=== PATIENT | female | born 1955 | race Hispanic/Latino ===

== ENCOUNTER 2017-08-18 06:05 | Day surgery (SDC) | payer OTHER ==
[~2017-08-18] VITALS: Ht 157.5 cm; Wt 70.0 kg
[2017-08-18 06:05] VITALS: BP 122/61
[~2017-08-18 06:05] MED LIST: PANT40TA PO; SPIR25TA PO
[2017-08-18] MEDS ORDERED: SODIUM CHLORIDE 0.9% 1000ML 1,000 ML IV ONE (06:25)
[2017-09-21] MEDS ORDERED: PANT40TA25 PO (11:31)
[2017-09-21] MEDS ORDERED: [UNRECOGNIZED DRUG - OTHER] PO (11:31)
[2017-09-21] MEDS ORDERED: ERGO500014 PO (11:31)
[2017-09-21] MEDS ORDERED: FERR325T22 PO (11:31)
[2017-09-21] MEDS ORDERED: SUCR1ORA3 PO (11:31)
[2017-09-21] MEDS ORDERED: MAGN400T40 PO (11:31)
== END 2017-08-18 08:10 | disposition home or self-care (01) ==
LOC: ENDO 06:05 → DAH 06:05 → ENDO 08:10
PROVIDERS: ATTEND Internal Medicine
DX: K28.9 Gastrojejunal ulcer, unspecified as acute or chronic, without hemorrhage or perforation (principal); K25.9 Gastric ulcer, unspecified as acute or chronic, without hemorrhage or perforation; I85.00 Esophageal varices without bleeding; K74.60 Unspecified cirrhosis of liver; Z98.890 Other specified postprocedural states; Z79.899 Other long term (current) drug therapy
CPT/HCPCS: 43239; A4606; J7030

== ENCOUNTER → 2017-09-06 | Outpatient (CLI) | payer OTHER ==
[~2017-09-06] MED LIST changes: +ERGO500014 PO; +FERR325T22 PO; +MAGN400T40 PO; +PANT40TA25 PO; +SUCR1ORA3 PO; +[UNRECOGNIZED DRUG - OTHER] PO
[2017-09-06 10:20] LABS: EOSINOPHILS % (AUTO) 1.4 % (0.0-8.0); HEMATOCRIT 33.5 % (36-48); LYMPHOCYTES % (AUTO) 21.4 % (21.0-51.0); MEAN CORPUSCULAR HEMOGLOBIN 30.6 pg (27.0-33.0); MEAN CORPUSCULAR HGB CONC 34.5 g/dL (32.0-36.0); MEAN CORPUSCULAR VOLUME 88.8 fL (79-99); MONOCYTES % (AUTO) 9.7 % (3.0-13.0); NEUTROPHILS % (AUTO) 66.5 % (40.0-77.0); NUCLEATED RED BLOOD CELLS 0.1 % (0.0-0.19); PLATELET COUNT (AUTO) 74 K/uL (130-400); RED BLOOD CELL COUNT(AUTO) 3.77 MIL/uL (4.00-5.50); RED CELL DISTRIBUTION WIDTH 29.2 % (11.0-15.5); WHITE BLOOD COUNT (AUTO) 4.8 K/uL (4.8-10.8)
[2017-09-06 10:30] LABS: INR 1.44 (0.85-1.15)
[2017-09-06 10:49] LABS: ALBUMIN 2.9 g/dL (3.5-5.0); BILIRUBIN,TOTAL 1.2 mg/dL (0.2-1.0); CREATININE 0.6 mg/dL (0.5-1.5); POTASSIUM 4.4 mmol/L (3.5-5.1); TOTAL PROTEIN, SERUM 6.7 g/dL (6.0-8.3)
[2017-09-06 12:42] LABS: ALBUMIN,BODY FLUID 0.6 g/dL
[2017-09-06 12:50] LABS: APPEARANCE BODY FLUID CLEAR (CLEAR); BODY FLUID RBC 292 /cu. mm.; BODY FLUID WBC 253 /cu. mm.; COLOR,BODY FLUID YELLOW (LT YELLOW); SPECIMENTYPE,BODY FLUID ASCITES
[2017-09-06 12:55] LABS: TOTAL VOLUME,BODY FLUID 3000 mL
[2017-09-06 13:57] LABS: BF LYMPHOCYTE 29 %; BF MESOTHELIAL 60 %; BF MONOCYTE 7 %
== END | disposition home or self-care (01) ==
LOC: RAH 09:50
PROVIDERS: ATTEND Internal Medicine
DX: K70.31 Alcoholic cirrhosis of liver with ascites (principal)
CPT/HCPCS: 36415; 49083; 80053; 82042; 84157; 85025; 85610; 87071; 87205; 88108; 88305; 89051

== ENCOUNTER 2017-09-23 06:54 | Day surgery (SDC) | payer OTHER ==
[2017-09-21 11:01] LABS: BASOPHILS % (AUTO) 0.8 % (0.0-5.0); HEMATOCRIT 36.4 % (36-48); LYMPHOCYTES % (AUTO) 16.6 % (21.0-51.0); MEAN CORPUSCULAR HEMOGLOBIN 30.3 pg (27.0-33.0); MEAN CORPUSCULAR HGB CONC 33.4 g/dL (32.0-36.0); MEAN CORPUSCULAR VOLUME 90.7 fL (79-99); MONOCYTES % (AUTO) 8.1 % (3.0-13.0); NEUTROPHILS % (AUTO) 73.5 % (40.0-77.0); PLATELET COUNT (AUTO) 94 K/uL (130-400); RED BLOOD CELL COUNT(AUTO) 4.01 MIL/uL (4.00-5.50); RED CELL DISTRIBUTION WIDTH 28.5 % (11.0-15.5); WHITE BLOOD COUNT (AUTO) 6.4 K/uL (4.8-10.8)
[2017-09-21 11:02] VITALS: BP 144/64
[2017-09-21 11:14] LABS: INR 1.34 (0.85-1.15)
[2017-09-21 11:21] LABS: ALBUMIN 2.8 g/dL (3.5-5.0); BILIRUBIN,DIRECT 0.5 mg/dL (0.0-0.3); BILIRUBIN,TOTAL 1.2 mg/dL (0.2-1.0); CREATININE 0.8 mg/dL (0.5-1.5); POTASSIUM 4.3 mmol/L (3.5-5.1)
[2017-09-21 11:46] LABS: APPEARANCE,URINE Clear (CLEAR); BILIRUBIN,URINE Negative (NEGATIVE); COLOR,URINE Yellow (YELLOW); GLUCOSE, URINE (UA) Negative (NEGATIVE); KETONES,URINE Negative (NEGATIVE); LEUKOCYTE ESTERASE ,URINE Moderate (NEGATIVE); NITRATE,URINE Negative (NEGATIVE); OCCULT BLOOD,URINE Negative (NEGATIVE); PROTEIN,URINE Negative (NEGATIVE); UROBILINOGEN,URINE 0.2 mg/dL (0.2-1.0)
[2017-09-21 11:52] LABS: BACTERIA,URINE Rare /HPF (None Seen); SQUAMOUS EPITHELIAL CELL,UR Rare /HPF (0-2); WBC,URINE 0-1 /HPF (0-1)
[2017-09-23] VITALS (14 sets, daily range): BP systolic 119–144; BP diastolic 48–74
[~2017-09-23] VITALS: Ht 160 cm; Wt 70.9 kg
[~2017-09-23 06:54] MED LIST changes: -PANT40TA PO; -SPIR25TA PO
[2017-09-23] MEDS ORDERED: LACTATED RINGERS 1000ML 1,000 ML IV ONE (07:21)
[2017-09-23] MEDS ORDERED: MIDAZOLAM HCL 1 MG/ML 2ML VIAL ONE (08:18)
[2017-09-23] MEDS ORDERED: PROPOFOL 10 MG/ML 20ML VIAL IV ONE (08:18)
[2017-09-23] MEDS ORDERED: FENTANYL CITRATE PF 50 MCG/1 ML 2ML VIAL ONE (08:19)
[2017-09-23] MEDS ORDERED: GLYCOPYRROLATE 0.2 MG/ML 5 ML VIAL ONE (08:20)
[2017-09-23] MEDS ORDERED: NEOSTIGMINE METHYLSULFATE 1MG/ML IV ONE (08:20)
[2017-09-23] MEDS ORDERED: MEPERIDINE-PF 25 MG/ML SYG ONE ×2 (09:20→09:38)
== END 2017-09-23 11:05 | disposition home or self-care (01) ==
LOC: DAH 06:54
PROVIDERS: ATTEND Surgery
DX: K40.90 Unilateral inguinal hernia, without obstruction or gangrene, not specified as recurrent (principal); K70.31 Alcoholic cirrhosis of liver with ascites; F31.89 Other bipolar disorder; D50.8 Other iron deficiency anemias; M19.90 Unspecified osteoarthritis, unspecified site; Z88.8 Allergy status to other drugs, medicaments and biological substances; Z87.891 Personal history of nicotine dependence; Z79.899 Other long term (current) drug therapy
CPT/HCPCS: 36415; 49505; 80048; 80076; 81001; 85025; 85610; A4450; A4452; A4600; A4930 ×2; C1729; J2175 ×2; J2250; J2704; J2710; J3010; J3490; J7030; J7120

== ENCOUNTER 2017-09-30 14:25 | Emergency (ER) | payer OTHER ==
[2017-09-30 14:56] LABS: APPEARANCE,URINE Clear (CLEAR); BILIRUBIN,URINE Negative (NEGATIVE); COLOR,URINE Yellow (YELLOW); GLUCOSE, URINE (UA) Negative (NEGATIVE); KETONES,URINE Negative (NEGATIVE); LEUKOCYTE ESTERASE ,URINE Moderate (NEGATIVE); NITRATE,URINE Negative (NEGATIVE); OCCULT BLOOD,URINE Negative (NEGATIVE); PROTEIN,URINE Negative (NEGATIVE)
[2017-09-30 15:11] LABS: BACTERIA,URINE Few /HPF (None Seen); RBC,URINE 0-1 /HPF (0-1)
[2017-09-30 15:11] LABS: EOSINOPHILS % (AUTO) 1.2 % (0.0-8.0); HEMATOCRIT 26.5 % (36-48); LYMPHOCYTES % (AUTO) 14.8 % (21.0-51.0); MEAN CORPUSCULAR HEMOGLOBIN 31.9 pg (27.0-33.0); MEAN CORPUSCULAR HGB CONC 34.3 g/dL (32.0-36.0); MEAN CORPUSCULAR VOLUME 92.9 fL (79-99); MONOCYTES % (AUTO) 11.3 % (3.0-13.0); NEUTROPHILS % (AUTO) 71.7 % (40.0-77.0); PLATELET COUNT (AUTO) 96 K/uL (130-400); RED BLOOD CELL COUNT(AUTO) 2.85 MIL/uL (4.00-5.50); RED CELL DISTRIBUTION WIDTH 27.3 % (11.0-15.5)
[2017-09-30 15:12] LABS: SQUAMOUS EPITHELIAL CELL,UR Few /HPF (0-2)
[2017-09-30 15:26] LABS: CREATININE 0.5 mg/dL (0.5-1.5); POTASSIUM 3.4 mmol/L (3.5-5.1)
[2017-09-30] MEDS ORDERED: IOPAMIDOL-370 75 ML VIAL IV ONE (15:29)
[2017-09-30 15:30] LABS: ALBUMIN 2.7 g/dL (3.5-5.0); BILIRUBIN,DIRECT 0.6 mg/dL (0.0-0.3); BILIRUBIN,TOTAL 1.8 mg/dL (0.2-1.0); TOTAL PROTEIN, SERUM 6.3 g/dL (6.0-8.3)
[2017-09-30] MEDS ORDERED: ONDANSETRON HCL MDV 20ML 2 MG/ML VIAL ONE (15:31)
[2017-09-30] MEDS ORDERED: FENTANYL CITRATE PF 50 MCG/1 ML 2ML VIAL ONE (15:32)
== END 2017-09-30 18:58 | disposition home or self-care (01) ==
LOC: EDH 14:25
DX: R14.0 Abdominal distension (gaseous) (principal); R18.8 Other ascites; K74.60 Unspecified cirrhosis of liver; Z98.890 Other specified postprocedural states
CPT/HCPCS: 36415; 74177; 80048; 80076; 81001; 83690; 84484; 85025; 86850; 86900; 86901; 93005; 96374; 96375; 99285; J3010; Q9967

== ENCOUNTER → 2018-03-01 | Outpatient (CLI) | payer OTHER ==
[~2018-03-01] MED LIST changes: +ALBUMIN (HUMAN) 25% 200 ML IV ONE; +LIDOCAINE HCL MPF 1% 5ML VIAL ONE; +PROP10TA10 PO; -[UNRECOGNIZED DRUG - OTHER] PO
[2018-03-01 12:32] LABS: APPEARANCE BODY FLUID CLEAR (CLEAR); BODY FLUID WBC 211 /cu. mm.; COLOR,BODY FLUID LT YELLOW (LT YELLOW); SPECIMENTYPE,BODY FLUID ASCITES; TOTAL VOLUME,BODY FLUID 5800 mL
[2018-03-01 12:33] LABS: BODY FLUID RBC 275 /cu. mm.
[2018-03-01 12:37] LABS: BF LYMPHOCYTE 41 %; BF MESOTHELIAL 33 %; BF MONOCYTE 4 %
== END | disposition home or self-care (01) ==
LOC: RAH 07:42
PROVIDERS: ATTEND Internal Medicine Gastroenterology
DX: K70.31 Alcoholic cirrhosis of liver with ascites (principal); F10.10 Alcohol abuse, uncomplicated; Z88.8 Allergy status to other drugs, medicaments and biological substances; Z79.01 Long term (current) use of anticoagulants; Z79.899 Other long term (current) drug therapy; Z87.891 Personal history of nicotine dependence
CPT/HCPCS: 49083; 87071; 87205; 88108; 88305; 89051; J3490; P9046

== ENCOUNTER 2018-03-21 12:38 | Emergency (ER) | payer MEDICARE ==
[~2018-03-21 12:38] MED LIST changes: -ALBUMIN (HUMAN) 25% 200 ML IV ONE; -LIDOCAINE HCL MPF 1% 5ML VIAL ONE
[2018-03-21] MEDS ORDERED: LIDOCAINE HCL MPF 1% 5ML VIAL ONE (14:40)
[2018-03-21] MEDS ORDERED: ALBUMIN (HUMAN) 25% 200 ML IV ONE (14:40)
== END 2018-03-21 16:05 | disposition home or self-care (01) ==
LOC: EDH 12:38
DX: R18.8 Other ascites (principal); Z87.891 Personal history of nicotine dependence
CPT/HCPCS: 49083; 99285; J3490; P9046

== ENCOUNTER → 2018-03-30 | Outpatient (CLI) | payer MEDICARE ==
[~2018-03-30] MED LIST changes: +ALBUMIN (HUMAN) 25% 200 ML IV ONE; +LIDOCAINE HCL MPF 1% 5ML VIAL ONE
[2018-03-30 08:57] LABS: INR 1.33 (0.85-1.15); PROTHROMBIN TIME 13.9 SEC (9.6-11.6)
[2018-03-30 09:04] LABS: ALBUMIN 3.1 g/dL (3.5-5.0); CREATININE 0.8 mg/dL (0.5-1.5); POTASSIUM 4.6 mmol/L (3.5-5.1); TOTAL PROTEIN, SERUM 6.6 g/dL (6.0-8.3)
[2018-03-30 09:10] LABS: MEAN CORPUSCULAR HEMOGLOBIN 26.8 pg (27.0-33.0); MEAN CORPUSCULAR HGB CONC 33.4 g/dL (32.0-36.0); MEAN CORPUSCULAR VOLUME 80.3 fL (79-99); PLATELET COUNT (AUTO) 92 K/uL (130-400); RED BLOOD CELL COUNT(AUTO) 3.74 MIL/uL (4.00-5.50); RED CELL DISTRIBUTION WIDTH 23.1 % (11.0-15.5); WHITE BLOOD COUNT (AUTO) 4.1 K/uL (4.8-10.8)
[2018-03-30 09:37] LABS: BASOPHILS % (MANUAL) 2 % (0-2); EOSINOPHILS % (MANUAL) 4 % (1-6); LYMPHOCYTES % (MANUAL) 21 % (22-44); MAN.DIFF COMMENT-IMPRESSION MANUAL DIFFERENTIAL; MONOCYTES % (MANUAL) 6 % (2-9); SEGMENTED NEUTROPHILS % 67 % (40-70)
== END | disposition home or self-care (01) ==
LOC: RAH 08:06
PROVIDERS: ATTEND Internal Medicine Gastroenterology
DX: K70.31 Alcoholic cirrhosis of liver with ascites (principal); N18.9 Chronic kidney disease, unspecified; E44.0 Moderate protein-calorie malnutrition; F31.9 Bipolar disorder, unspecified; D69.6 Thrombocytopenia, unspecified; M19.90 Unspecified osteoarthritis, unspecified site; D68.59 Other primary thrombophilia; F10.10 Alcohol abuse, uncomplicated; Z87.891 Personal history of nicotine dependence; Z79.01 Long term (current) use of anticoagulants; Z79.899 Other long term (current) drug therapy; Z86.010 Personal history of colon polyps; Z98.890 Other specified postprocedural states; Z87.11 Personal history of peptic ulcer disease
CPT/HCPCS: 36415; 80053; 85025; 85610; J3490; P9046

== ENCOUNTER → 2018-04-06 | Outpatient (CLI) | payer MEDICARE ==
[~2018-04-06] MED LIST changes: +ALBUMIN (HUMAN) 25% 200 ML IV PRN
[2018-04-06 08:24] LABS: BASOPHILS % (AUTO) 1.1 % (0.0-5.0); EOSINOPHILS % (AUTO) 1.8 % (0.0-8.0); HEMATOCRIT 27.8 % (36-48); LYMPHOCYTES % (AUTO) 14.2 % (21.0-51.0); MEAN CORPUSCULAR HGB CONC 32.4 g/dL (32.0-36.0); MEAN CORPUSCULAR VOLUME 83.4 fL (79-99); MONOCYTES % (AUTO) 8.2 % (3.0-13.0); NEUTROPHILS % (AUTO) 74.7 % (40.0-77.0); PLATELET COUNT (AUTO) 86 K/uL (130-400); RED BLOOD CELL COUNT(AUTO) 3.33 MIL/uL (4.00-5.50); RED CELL DISTRIBUTION WIDTH 27.1 % (11.0-15.5); WHITE BLOOD COUNT (AUTO) 5.9 K/uL (4.8-10.8)
[2018-04-06 08:35] LABS: ALBUMIN 2.9 g/dL (3.5-5.0); BILIRUBIN,TOTAL 1.4 mg/dL (0.2-1.0); CREATININE 0.8 mg/dL (0.5-1.5); POTASSIUM 4.5 mmol/L (3.5-5.1); TOTAL PROTEIN, SERUM 6.4 g/dL (6.0-8.3)
[2018-04-06 08:42] LABS: INR 1.34 (0.85-1.15)
[2018-04-06 11:54] LABS: APPEARANCE BODY FLUID CLEAR (CLEAR); COLOR,BODY FLUID LT YELLOW (LT YELLOW); SPECIMENTYPE,BODY FLUID ASCITES; TOTAL VOLUME,BODY FLUID 4700 mL
[2018-04-06 11:55] LABS: BODY FLUID WBC 270 /cu. mm.
[2018-04-06 11:56] LABS: BODY FLUID RBC 393 /cu. mm.
[2018-04-06 12:03] LABS: BF LYMPHOCYTE 25 %; BF MESOTHELIAL 20 %; BF MONOCYTE 4 %; BF OTHER CELLS 1
== END | disposition home or self-care (01) ==
LOC: RAH 08:01
PROVIDERS: ATTEND Internal Medicine Gastroenterology
DX: R18.8 Other ascites (principal)
CPT/HCPCS: 36415; 49083; 80053; 85025; 85610; 87071; 87205; 88108; 88305; 89051; 96365; A4215; J3490; P9046

== ENCOUNTER 2018-04-12 11:25 | Observation (INO) | payer MEDICARE ==
[~2018-04-12] VITALS: Ht 160 cm; Wt 56.7 kg
[~2018-04-12 11:25] MED LIST changes: -ALBUMIN (HUMAN) 25% 200 ML IV ONE; -ALBUMIN (HUMAN) 25% 200 ML IV PRN; -LIDOCAINE HCL MPF 1% 5ML VIAL ONE
[2018-04-12 12:30] LABS: BASOPHILS % (AUTO) 1.6 % (0.0-5.0); LYMPHOCYTES % (AUTO) 22.5 % (21.0-51.0); MEAN CORPUSCULAR HEMOGLOBIN 28.5 pg (27.0-33.0); MEAN CORPUSCULAR HGB CONC 33.7 g/dL (32.0-36.0); MEAN CORPUSCULAR VOLUME 84.6 fL (79-99); MONOCYTES % (AUTO) 7.1 % (3.0-13.0); NEUTROPHILS % (AUTO) 67.8 % (40.0-77.0); PLATELET COUNT (AUTO) 115 K/uL (130-400); RED BLOOD CELL COUNT(AUTO) 1.88 MIL/uL (4.00-5.50)
[2018-04-12 12:43] LABS: POTASSIUM 3.4 mmol/L (3.5-5.1)
[2018-04-12 12:45] LABS: HEMATOCRIT 15.9 % (36-48)
[2018-04-12] MEDS ORDERED: SODIUM CHLORIDE 0.9% 500ML 500 ML IV ONE (14:51)
[2018-04-12] MEDS ORDERED: SODIUM CHLORIDE 0.9% 100 ML IV ONE (14:56)
[2018-04-12] MEDS ORDERED: OCTREOTIDE ACETATE 200 MCG/ML 5 ML VIAL ONE (14:57)
[2018-04-12] MEDS ORDERED: PANTOPRAZOLE SODIUM 80 MG in NS 100ML IVP SCH ×2 (15:00→19:00)
[2018-04-12] MEDS ORDERED: SODIUM CHLORIDE 0.9% 1000ML 1,000 ML IV SCH (15:00)
[2018-04-12 16:32] LABS: APPEARANCE,URINE Clear (CLEAR); BILIRUBIN,URINE Negative (NEGATIVE); COLOR,URINE Yellow (YELLOW); GLUCOSE, URINE (UA) Negative (NEGATIVE); KETONES,URINE Negative (NEGATIVE); LEUKOCYTE ESTERASE ,URINE Negative (NEGATIVE); NITRATE,URINE Negative (NEGATIVE); OCCULT BLOOD,URINE Negative (NEGATIVE); PROTEIN,URINE Negative (NEGATIVE); UROBILINOGEN,URINE 0.2 mg/dL (0.2-1.0)
[2018-04-12 17:28] VITALS: BP 119/63
[2018-04-12] MEDS ORDERED: OCTREOTIDE ACETATE 1,000 MCG in SODIUM CHLORIDE 0.9% 95 ML IV SCH (18:45)
[2018-04-12 20:00] VITALS: BP 105/66
[2018-04-12 23:00] VITALS: BP 106/52
[2018-04-13] VITALS (20 sets, daily range): BP systolic 102–135; BP diastolic 51–73
[2018-04-13] MEDS: SODIUM CHLORIDE 0.9% 1000ML 1,000 ML IV SCH ×2 (00:52→08:45)
[2018-04-13 01:50] LABS: HEMATOCRIT 21.4 % (36-48)
[2018-04-13 06:18] LABS: BASOPHILS % (AUTO) 0.9 % (0.0-5.0); EOSINOPHILS % (AUTO) 2.5 % (0.0-8.0); HEMATOCRIT 21.8 % (36-48); LYMPHOCYTES % (AUTO) 24.1 % (21.0-51.0); MEAN CORPUSCULAR HEMOGLOBIN 29.2 pg (27.0-33.0); MEAN CORPUSCULAR HGB CONC 34.4 g/dL (32.0-36.0); MEAN CORPUSCULAR VOLUME 84.9 fL (79-99); MONOCYTES % (AUTO) 9.9 % (3.0-13.0); NEUTROPHILS % (AUTO) 62.6 % (40.0-77.0); PLATELET COUNT (AUTO) 68 K/uL (130-400); RED BLOOD CELL COUNT(AUTO) 2.57 MIL/uL (4.00-5.50); RED CELL DISTRIBUTION WIDTH 21.3 % (11.0-15.5); WHITE BLOOD COUNT (AUTO) 4.4 K/uL (4.8-10.8)
[2018-04-13 06:36] LABS: ALBUMIN 2.3 g/dL (3.5-5.0); BILIRUBIN,TOTAL 1.4 mg/dL (0.2-1.0); CREATININE 0.8 mg/dL (0.5-1.5); INR 1.55 (0.85-1.15); MAGNESIUM 2.3 mg/dL (1.80-2.40); PARTIAL THROMBOPLASTIN TIME 36.6 SEC (26.3-35.5); PHOSPHORUS 2.8 mg/dL (2.5-4.9); PROTHROMBIN TIME 16.1 SEC (9.6-11.6); TOTAL PROTEIN, SERUM 4.9 g/dL (6.0-8.3)
[2018-04-13 06:38] LABS: POTASSIUM 2.9 mmol/L (3.5-5.1)
[2018-04-13] MEDS ORDERED: POTASSIUM CHLORIDE 20MEQ/100ML 100 ML IV ONE (06:49)
[2018-04-13] MEDS ORDERED: POTASSIUM CHLORIDE 20MEQ/100ML 100 ML IV PRN (07:00)
[2018-04-13] MEDS ORDERED: POTASSIUM CHLORIDE 20 MEQ ERTAB PO PRN (07:00)
[2018-04-13] MEDS ORDERED: LIDOCAINE HCL-MPF 1% 2ML VIAL IVP PRN (07:00)
[2018-04-13] MEDS ORDERED: POTASSIUM CHLORIDE 10% ELIXIR 20 MEQ/15 ML UDCUP PO PRN (07:00)
[2018-04-13 07:07] LABS: B-TYPE NATRIURETIC PEPTIDE 151 pg/mL (0-100)
[2018-04-13] MEDS: POTASSIUM CHLORIDE 10% ELIXIR 20 MEQ/15 ML UDCUP PO SCH ×2 (08:46→18:50)
[2018-04-13 12:04] LABS: HEMATOCRIT 25.1 % (36-48)
[2018-04-13 18:08] LABS: HEMATOCRIT 26.9 % (36-48)
[2018-04-14 03:57] VITALS: BP 99/54
[2018-04-14 06:11] LABS: BASOPHILS % (AUTO) 0.8 % (0.0-5.0); EOSINOPHILS % (AUTO) 3.4 % (0.0-8.0); HEMATOCRIT 23.6 % (36-48); LYMPHOCYTES % (AUTO) 30.4 % (21.0-51.0); MEAN CORPUSCULAR HEMOGLOBIN 28.9 pg (27.0-33.0); MEAN CORPUSCULAR HGB CONC 33.4 g/dL (32.0-36.0); MEAN CORPUSCULAR VOLUME 86.3 fL (79-99); MONOCYTES % (AUTO) 12.7 % (3.0-13.0); NEUTROPHILS % (AUTO) 52.7 % (40.0-77.0); PLATELET COUNT (AUTO) 71 K/uL (130-400); RED BLOOD CELL COUNT(AUTO) 2.74 MIL/uL (4.00-5.50); RED CELL DISTRIBUTION WIDTH 21.4 % (11.0-15.5); WHITE BLOOD COUNT (AUTO) 3.6 K/uL (4.8-10.8)
[2018-04-14 06:30] LABS: ALBUMIN 2.2 g/dL (3.5-5.0); BILIRUBIN,TOTAL 1.3 mg/dL (0.2-1.0); CREATININE 0.7 mg/dL (0.5-1.5); MAGNESIUM 2.3 mg/dL (1.80-2.40); PHOSPHORUS 2.2 mg/dL (2.5-4.9); POTASSIUM 3.9 mmol/L (3.5-5.1); TOTAL PROTEIN, SERUM 4.8 g/dL (6.0-8.3)
[2018-04-14 07:00] VITALS: BP 118/58
[2018-04-14] MEDS: POTASSIUM CHLORIDE 10% ELIXIR 20 MEQ/15 ML UDCUP PO SCH (08:42)
[2018-04-14] MEDS ORDERED: PANTOPRAZOLE SODIUM 40 MG TABLET.DR PO SCH (10:30)
[2018-04-14 11:00] VITALS: BP 123/49
[2018-04-14 12:23] LABS: HEMATOCRIT 24.2 % (36-48)
== END 2018-04-14 15:28 | disposition home or self-care (01) ==
LOC: EDH 11:25 → INTOOBSV 14:35 → EDHIP 14:35 → 2AH 17:07
PROVIDERS: ADMIT Internal Medicine; ATTEND Internal Medicine
DX: D62 Acute posthemorrhagic anemia (principal); K29.70 Gastritis, unspecified, without bleeding; K26.9 Duodenal ulcer, unspecified as acute or chronic, without hemorrhage or perforation; I85.00 Esophageal varices without bleeding; K74.60 Unspecified cirrhosis of liver; R18.8 Other ascites; E87.6 Hypokalemia; E44.0 Moderate protein-calorie malnutrition; Z87.891 Personal history of nicotine dependence
CPT/HCPCS: 36415 ×3; 36430; 43235; 71045; 80048; 80053 ×2; 80061; 81003; 82140 ×2; 82270; 83735 ×2; 83880; 84100 ×2; 85014 ×5; 85018 ×5; 85025 ×3; 85610; 85730; 86850; 86900; 86901; 86922 ×2; 93005; 96361; 96365; 96366; 96368; 99291; C9113 ×4; G0378 ×49; J2354 ×5; J2370; J2704; J3480; J3490; J7030 ×2; J7040; P9016 ×2; P9046

== ENCOUNTER → 2018-04-20 | Outpatient (CLI) | payer MEDICARE ==
[~2018-04-20] MED LIST changes: +ALBUMIN (HUMAN) 25% 200 ML IV ONE
[2018-04-20 08:08] LABS: BASOPHILS % (AUTO) 1.7 % (0.0-5.0); EOSINOPHILS % (AUTO) 2.2 % (0.0-8.0); LYMPHOCYTES % (AUTO) 21.3 % (21.0-51.0); MEAN CORPUSCULAR HEMOGLOBIN 28.4 pg (27.0-33.0); MEAN CORPUSCULAR HGB CONC 32.6 g/dL (32.0-36.0); MEAN CORPUSCULAR VOLUME 87.2 fL (79-99); MONOCYTES % (AUTO) 11.9 % (3.0-13.0); NEUTROPHILS % (AUTO) 62.9 % (40.0-77.0); PLATELET COUNT (AUTO) 115 K/uL (130-400); RED BLOOD CELL COUNT(AUTO) 2.64 MIL/uL (4.00-5.50); RED CELL DISTRIBUTION WIDTH 20.8 % (11.0-15.5)
[2018-04-20 08:20] LABS: ALBUMIN 2.5 g/dL (3.5-5.0); BILIRUBIN,TOTAL 0.9 mg/dL (0.2-1.0); POTASSIUM 4.7 mmol/L (3.5-5.1); TOTAL PROTEIN, SERUM 5.4 g/dL (6.0-8.3)
[2018-04-20 08:23] LABS: INR 1.37 (0.85-1.15); PROTHROMBIN TIME 14.3 SEC (9.6-11.6)
[2018-04-20 12:50] LABS: APPEARANCE BODY FLUID CLEAR (CLEAR); COLOR,BODY FLUID YELLOW (LT YELLOW); SPECIMENTYPE,BODY FLUID ASCITES; TOTAL VOLUME,BODY FLUID 4900 mL
[2018-04-20 12:51] LABS: BODY FLUID RBC 119 /cu. mm.; BODY FLUID WBC 150 /cu. mm.
[2018-04-20 12:55] LABS: BF LYMPHOCYTE 32 %; BF MESOTHELIAL 53 %; BF MONOCYTE 11 %
== END | disposition home or self-care (01) ==
LOC: RAH 07:49
PROVIDERS: ATTEND Internal Medicine Gastroenterology
DX: K70.31 Alcoholic cirrhosis of liver with ascites (principal)
CPT/HCPCS: 36415; 49083; 80053; 85025; 85610; 87071; 87205; 88108; 88305; 89051; 96365; A4215; P9046

== ENCOUNTER 2018-04-21 22:08 | Inpatient (IN) | payer MEDICARE ==
[~2018-04-21] VITALS: Ht 160 cm; Wt 64.2 kg
[~2018-04-21 22:08] MED LIST changes: -ALBUMIN (HUMAN) 25% 200 ML IV ONE
[2018-04-21] MEDS ORDERED: SODIUM CHLORIDE 0.9% 1000ML 1,000 ML IV ONE (22:49)
[2018-04-21] MEDS ORDERED: ONDANSETRON HCL 4 MG/2 ML VIAL ONE (22:49)
[2018-04-21 22:54] LABS: BASOPHILS % (AUTO) 0.7 % (0.0-5.0); EOSINOPHILS % (AUTO) 0.2 % (0.0-8.0); LYMPHOCYTES % (AUTO) 9.9 % (21.0-51.0); MEAN CORPUSCULAR HEMOGLOBIN 27.4 pg (27.0-33.0); MEAN CORPUSCULAR HGB CONC 30.8 g/dL (32.0-36.0); MEAN CORPUSCULAR VOLUME 88.8 fL (79-99); MONOCYTES % (AUTO) 5.1 % (3.0-13.0); NEUTROPHILS % (AUTO) 84.1 % (40.0-77.0); NUCLEATED RED BLOOD CELLS 0.1 % (0.0-0.19); PLATELET COUNT (AUTO) 156 K/uL (130-400); RED BLOOD CELL COUNT(AUTO) 2.16 MIL/uL (4.00-5.50); RED CELL DISTRIBUTION WIDTH 20.5 % (11.0-15.5); WHITE BLOOD COUNT (AUTO) 15.8 K/uL (4.8-10.8)
[2018-04-21 22:57] LABS: HEMATOCRIT 19.2 % (36-48)
[2018-04-21] MEDS ORDERED: SODIUM CHLORIDE 0.9% 100 ML IV ONE ×2 (23:03→23:43)
[2018-04-21 23:16] LABS: CREATININE 1.1 mg/dL (0.5-1.5); POTASSIUM 4.2 mmol/L (3.5-5.1)
[2018-04-21 23:27] LABS: ALBUMIN 2.7 g/dL (3.5-5.0); BILIRUBIN,TOTAL 1.5 mg/dL (0.2-1.0); TOTAL PROTEIN, SERUM 5.4 g/dL (6.0-8.3)
[2018-04-21] MEDS ORDERED: OCTREOTIDE ACETATE 100 MCG/ML AMP ONE (23:43)
[2018-04-21] MEDS ORDERED: OCTREOTIDE ACETATE 200 MCG/ML 5 ML VIAL ONE (23:44)
[2018-04-22] VITALS (18 sets, daily range): BP systolic 94–124; BP diastolic 54–68
[2018-04-22 00:17] LABS: INR 1.56 (0.85-1.15); PROTHROMBIN TIME 16.2 SEC (9.6-11.6)
[2018-04-22] MEDS: SODIUM CHLORIDE 0.9% 1000ML 1,000 ML IV SCH ×3 (03:05→19:05)
[2018-04-22] MEDS ORDERED: ACETAMINOPHEN 325 MG TAB PO PRN (03:15)
[2018-04-22] MEDS ORDERED: ONDANSETRON HCL 4 MG/2 ML VIAL IV PRN (03:15)
[2018-04-22] MEDS ORDERED: SODIUM CHLORIDE 0.9% 250 ML IV ONE (03:19)
[2018-04-22 04:36] LABS: HEMATOCRIT 23.1 % (36-48)
[2018-04-22] MEDS: OCTREOTIDE ACETATE 1,000 MCG in SODIUM CHLORIDE 0.9% 95 ML IV SCH ×2 (06:00→10:58)
[2018-04-22] MEDS: PANTOPRAZOLE SODIUM 80 MG in SODIUM CHLORIDE 0.9% 100 ML IV SCH ×2 (06:00→18:19)
[2018-04-22 08:40] LABS: APPEARANCE,URINE Clear (CLEAR); BILIRUBIN,URINE Negative (NEGATIVE); COLOR,URINE Yellow (YELLOW); GLUCOSE, URINE (UA) Negative (NEGATIVE); KETONES,URINE Negative (NEGATIVE); LEUKOCYTE ESTERASE ,URINE Trace (NEGATIVE); NITRATE,URINE Negative (NEGATIVE); OCCULT BLOOD,URINE Negative (NEGATIVE); PROTEIN,URINE Negative (NEGATIVE); UROBILINOGEN,URINE 0.2 mg/dL (0.2-1.0)
[2018-04-22 09:14] LABS: BACTERIA,URINE Few /HPF (None Seen); RBC,URINE 0-1 /HPF (0-1)
[2018-04-22 11:41] LABS: HEMATOCRIT 23.5 % (36-48)
[2018-04-22 14:05] LABS: INR 1.39 (0.85-1.15); PARTIAL THROMBOPLASTIN TIME 31.7 SEC (26.3-35.5); PROTHROMBIN TIME 14.5 SEC (9.6-11.6)
[2018-04-22 14:12] LABS: HEMATOCRIT 21.9 % (36-48)
[2018-04-22 22:17] LABS: HEMATOCRIT 20.8 % (36-48)
[2018-04-23] VITALS (21 sets, daily range): BP systolic 95–148; BP diastolic 48–81
[2018-04-23] MEDS: PANTOPRAZOLE SODIUM 80 MG in SODIUM CHLORIDE 0.9% 100 ML IV SCH ×2 (02:28→15:06)
[2018-04-23] MEDS: SODIUM CHLORIDE 0.9% 1000ML 1,000 ML IV SCH ×2 (02:52→21:00)
[2018-04-23 06:27] LABS: BASOPHILS % (AUTO) 0.9 % (0.0-5.0); EOSINOPHILS % (AUTO) 1.7 % (0.0-8.0); HEMATOCRIT 29.4 % (36-48); LYMPHOCYTES % (AUTO) 15.5 % (21.0-51.0); MEAN CORPUSCULAR HEMOGLOBIN 29.8 pg (27.0-33.0); MEAN CORPUSCULAR HGB CONC 33.6 g/dL (32.0-36.0); MEAN CORPUSCULAR VOLUME 88.7 fL (79-99); MONOCYTES % (AUTO) 7.8 % (3.0-13.0); NEUTROPHILS % (AUTO) 74.1 % (40.0-77.0); RED BLOOD CELL COUNT(AUTO) 3.31 MIL/uL (4.00-5.50); RED CELL DISTRIBUTION WIDTH 16.9 % (11.0-15.5); WHITE BLOOD COUNT (AUTO) 5.2 K/uL (4.8-10.8)
[2018-04-23 06:35] LABS: PLATELET COUNT (AUTO) 60 K/uL (130-400)
[2018-04-23 06:50] LABS: INR 1.45 (0.85-1.15); PROTHROMBIN TIME 15.1 SEC (9.6-11.6)
[2018-04-23 06:52] LABS: ALBUMIN 2.5 g/dL (3.5-5.0); BILIRUBIN,TOTAL 3.9 mg/dL (0.2-1.0); POTASSIUM 3.9 mmol/L (3.5-5.1); TOTAL PROTEIN, SERUM 4.8 g/dL (6.0-8.3)
[2018-04-23] MEDS: OCTREOTIDE ACETATE 1,000 MCG in SODIUM CHLORIDE 0.9% 95 ML IV SCH (09:36)
[2018-04-24] VITALS: BP 117/63
[2018-04-24 04:00] VITALS: BP 116/63
[2018-04-24 06:00] LABS: HEMATOCRIT 29.9 % (36-48); MEAN CORPUSCULAR HEMOGLOBIN 30.7 pg (27.0-33.0); MEAN CORPUSCULAR HGB CONC 34.1 g/dL (32.0-36.0); MEAN CORPUSCULAR VOLUME 89.9 fL (79-99); PLATELET COUNT (AUTO) 66 K/uL (130-400); RED BLOOD CELL COUNT(AUTO) 3.33 MIL/uL (4.00-5.50); RED CELL DISTRIBUTION WIDTH 17.3 % (11.0-15.5); WHITE BLOOD COUNT (AUTO) 3.7 K/uL (4.8-10.8)
[2018-04-24 06:09] LABS: INR 1.51 (0.85-1.15); PROTHROMBIN TIME 15.7 SEC (9.6-11.6)
[2018-04-24 06:16] LABS: CREATININE 0.8 mg/dL (0.5-1.5); POTASSIUM 3.7 mmol/L (3.5-5.1)
[2018-04-24 06:50] LABS: BASOPHILS % (MANUAL) 2 % (0-2); EOSINOPHILS % (MANUAL) 2 % (1-6); LYMPHOCYTES % (MANUAL) 13 % (22-44); MAN.DIFF COMMENT-IMPRESSION MANUAL DIFFERENTIAL; MONOCYTES % (MANUAL) 4 % (2-9); PLATELET MORPHOLOGY COMMENT DECREASED; SEGMENTED NEUTROPHILS % 79 % (40-70)
[2018-04-24 07:00] VITALS: BP 123/63
[2018-04-24 11:00] VITALS: BP 104/54
[2018-04-24] MEDS ORDERED: PANTOPRAZOLE SODIUM 40 MG TABLET.DR PO SCH ×2 (11:30→12:00)
[2018-04-24 12:20] LABS: HEMATOCRIT 31.3 % (36-48); MEAN CORPUSCULAR HEMOGLOBIN 30.9 pg (27.0-33.0); MEAN CORPUSCULAR HGB CONC 33.9 g/dL (32.0-36.0); PLATELET COUNT (AUTO) 69 K/uL (130-400); RED BLOOD CELL COUNT(AUTO) 3.44 MIL/uL (4.00-5.50); RED CELL DISTRIBUTION WIDTH 17.2 % (11.0-15.5); WHITE BLOOD COUNT (AUTO) 4.4 K/uL (4.8-10.8)
== END 2018-04-24 19:15 | disposition home or self-care (01) | DRG 378 ==
LOC: EDH 22:08 → EDHIP 04-22 00:20 → 3DH 04-22 01:24
PROVIDERS: ADMIT Internal Medicine; ATTEND Internal Medicine
PROC: 30233N1 Transfusion of Nonautologous Red Blood Cells into Peripheral Vein, Percutaneous Approach (ICD-10-PCS; 2018-04-21)
PROC: 30233L1 Transfusion of Nonautologous Fresh Plasma into Peripheral Vein, Percutaneous Approach (ICD-10-PCS; 2018-04-22)
PROC: 30233K1 Transfusion of Nonautologous Frozen Plasma into Peripheral Vein, Percutaneous Approach (ICD-10-PCS; 2018-04-22)
PROC: 0DJ08ZZ Inspection of Upper Intestinal Tract, Via Natural or Artificial Opening Endoscopic (ICD-10-PCS; 2018-04-22)
PROC: 0DB68ZX Excision of Stomach, Via Natural or Artificial Opening Endoscopic, Diagnostic (ICD-10-PCS; principal; 2018-04-23)
DX: K92.2 Gastrointestinal hemorrhage, unspecified (principal); D62 Acute posthemorrhagic anemia; D68.59 Other primary thrombophilia; K76.6 Portal hypertension; I85.10 Secondary esophageal varices without bleeding; K70.30 Alcoholic cirrhosis of liver without ascites; K31.89 Other diseases of stomach and duodenum; K22.8 Other specified diseases of esophagus; Z82.0 Family history of epilepsy and other diseases of the nervous system; Z82.3 Family history of stroke; Z82.49 Family history of ischemic heart disease and other diseases of the circulatory system; Z82.5 Family history of asthma and other chronic lower respiratory diseases; Z80.0 Family history of malignant neoplasm of digestive organs
CPT/HCPCS: 36415; 36430; 43235; 43239; 71045; 80048; 80053; 81001; 82150; 83690; 84484; 85014; 85018; 85025; 85027; 85610; 85730; 86850; 86900; 86901; 86922; 86927; 87040; 88305; 93005; 99291; C9113; J2354; J2405; J7030; P9016; P9017

== ENCOUNTER → 2018-05-10 | Outpatient (CLI) | payer MEDICARE ==
[~2018-05-10] MED LIST changes: +ALBUMIN (HUMAN) 25% 200 ML IV SCH; +CEFD300C3 PO; +LIDOCAINE HCL 1% 20 ML VIAL ONE
[2018-05-10 08:35] LABS: BASOPHILS % (AUTO) 1.1 % (0.0-5.0); EOSINOPHILS % (AUTO) 1.8 % (0.0-8.0); HEMATOCRIT 33.3 % (36-48); LYMPHOCYTES % (AUTO) 14.2 % (21.0-51.0); MEAN CORPUSCULAR HEMOGLOBIN 31.2 pg (27.0-33.0); MEAN CORPUSCULAR HGB CONC 33.5 g/dL (32.0-36.0); MEAN CORPUSCULAR VOLUME 93.1 fL (79-99); MONOCYTES % (AUTO) 8.5 % (3.0-13.0); NEUTROPHILS % (AUTO) 74.4 % (40.0-77.0); PLATELET COUNT (AUTO) 99 K/uL (130-400); RED BLOOD CELL COUNT(AUTO) 3.58 MIL/uL (4.00-5.50); WHITE BLOOD COUNT (AUTO) 5.5 K/uL (4.8-10.8)
[2018-05-10 08:50] LABS: ALBUMIN 2.7 g/dL (3.5-5.0); BILIRUBIN,TOTAL 1.6 mg/dL (0.2-1.0); CREATININE 1.4 mg/dL (0.5-1.5); POTASSIUM 4.9 mmol/L (3.5-5.1); TOTAL PROTEIN, SERUM 6.1 g/dL (6.0-8.3)
[2018-05-10 08:51] LABS: INR 1.39 (0.85-1.15); PROTHROMBIN TIME 14.5 SEC (9.6-11.6)
[2018-05-10 12:18] LABS: APPEARANCE BODY FLUID CLEAR (CLEAR); COLOR,BODY FLUID LT YELLOW (LT YELLOW); SPECIMENTYPE,BODY FLUID ASCITES; TOTAL VOLUME,BODY FLUID 8000 mL
[2018-05-10 12:19] LABS: BODY FLUID RBC 1680 /cu. mm.; BODY FLUID WBC 71 /cu. mm.
[2018-05-10 12:24] LABS: BF LYMPHOCYTE 45 %; BF MESOTHELIAL 51 %
== END | disposition home or self-care (01) ==
LOC: RAH 08:06
PROVIDERS: ATTEND Internal Medicine Gastroenterology
DX: R18.8 Other ascites (principal)
CPT/HCPCS: 36415; 49083; 80053; 85025; 85610; 87071; 87205; 88108; 88305; 89051; 96365; A4215; P9046

== ENCOUNTER → 2018-05-23 | Outpatient (CLI) | payer MEDICARE ==
[~2018-05-23] MED LIST changes: +ALBUMIN (HUMAN) 25% 200 ML IV ONE; -ALBUMIN (HUMAN) 25% 200 ML IV SCH; -LIDOCAINE HCL 1% 20 ML VIAL ONE
[2018-05-23 10:01] LABS: BASOPHILS % (AUTO) 0.8 % (0.0-5.0); HEMATOCRIT 28.4 % (36-48); LYMPHOCYTES % (AUTO) 13.1 % (21.0-51.0); MEAN CORPUSCULAR HEMOGLOBIN 30.6 pg (27.0-33.0); MEAN CORPUSCULAR HGB CONC 33.2 g/dL (32.0-36.0); MEAN CORPUSCULAR VOLUME 92.3 fL (79-99); MONOCYTES % (AUTO) 11.1 % (3.0-13.0); PLATELET COUNT (AUTO) 74 K/uL (130-400); RED BLOOD CELL COUNT(AUTO) 3.08 MIL/uL (4.00-5.50); RED CELL DISTRIBUTION WIDTH 19.6 % (11.0-15.5); WHITE BLOOD COUNT (AUTO) 5.7 K/uL (4.8-10.8)
[2018-05-23 10:17] LABS: ALBUMIN 2.6 g/dL (3.5-5.0); BILIRUBIN,TOTAL 1.1 mg/dL (0.2-1.0); CREATININE 0.9 mg/dL (0.5-1.5); POTASSIUM 3.4 mmol/L (3.5-5.1); TOTAL PROTEIN, SERUM 5.9 g/dL (6.0-8.3)
[2018-05-23 10:27] LABS: INR 1.42 (0.85-1.15); PROTHROMBIN TIME 14.8 SEC (9.6-11.6)
[2018-05-23 13:20] LABS: APPEARANCE BODY FLUID CLEAR (CLEAR); COLOR,BODY FLUID LT YELLOW (LT YELLOW); SPECIMENTYPE,BODY FLUID ASCITES
[2018-05-23 13:21] LABS: BODY FLUID RBC 215 /cu. mm.; BODY FLUID WBC 208 /cu. mm.; TOTAL VOLUME,BODY FLUID 5100 mL
[2018-05-23 13:29] LABS: BF LYMPHOCYTE 38 %; BF MESOTHELIAL 11 %; BF MONOCYTE 8 %
== END | disposition home or self-care (01) ==
LOC: RAH 09:18
PROVIDERS: ATTEND Internal Medicine Gastroenterology
DX: R18.8 Other ascites (principal)
CPT/HCPCS: 36415; 49083; 80053; 85025; 85610; 87071; 87205; 88108; 88305; 89051; 96365; A4215; P9046

== ENCOUNTER → 2018-05-30 | Outpatient (CLI) | payer MEDICARE ==
[~2018-05-30] MED LIST changes: -ALBUMIN (HUMAN) 25% 200 ML IV ONE; +ALBUMIN (HUMAN) 25% 200 ML IV SCH
[2018-05-30 09:24] LABS: BASOPHILS % (AUTO) 0.8 % (0.0-5.0); EOSINOPHILS % (AUTO) 1.3 % (0.0-8.0); HEMATOCRIT 30.3 % (36-48); LYMPHOCYTES % (AUTO) 16.6 % (21.0-51.0); MEAN CORPUSCULAR HEMOGLOBIN 31.5 pg (27.0-33.0); MEAN CORPUSCULAR HGB CONC 33.7 g/dL (32.0-36.0); MEAN CORPUSCULAR VOLUME 93.4 fL (79-99); MONOCYTES % (AUTO) 12.9 % (3.0-13.0); NEUTROPHILS % (AUTO) 68.4 % (40.0-77.0); NUCLEATED RED BLOOD CELLS 0.1 % (0.0-0.19); PLATELET COUNT (AUTO) 102 K/uL (130-400); RED BLOOD CELL COUNT(AUTO) 3.25 MIL/uL (4.00-5.50); RED CELL DISTRIBUTION WIDTH 19.5 % (11.0-15.5); WHITE BLOOD COUNT (AUTO) 5.1 K/uL (4.8-10.8)
[2018-05-30 09:47] LABS: INR 1.48 (0.85-1.15); PROTHROMBIN TIME 15.4 SEC (9.6-11.6)
[2018-05-30 09:54] LABS: ALBUMIN 2.9 g/dL (3.5-5.0); BILIRUBIN,TOTAL 1.1 mg/dL (0.2-1.0); CREATININE 1.2 mg/dL (0.5-1.5); TOTAL PROTEIN, SERUM 6.1 g/dL (6.0-8.3)
--- NOTE | 2018-05-30 11:49 | NUR ---
PROCEDURE PATIENT C/O CHILLS DURING PROCEDURE. STATES SHE HAD A FEVER 3 WEEKS AGO. TEMPURATURE PRIOR TO PROCEDURE 98.3 AND TEMPERATURE POST PROCEDURE 102.6. DR GERMAN OFFICE NOTIFIED AND PENDING ORDERS.
--- NOTE | 2018-05-30 12:00 | NUR ---
U/S GD PARACENTESIS PROCEDURE PERFORMED BY DR Ebony POLLARD. PUNCTURE SITE LLQ AND PATIENT TOLERATED PROCEDURE WELL. TOTAL REMOVED 3.8 LITERS OF CLOUDY YELLOW FLUID. ALBUMIN 25% 50 GRAMS IV GIVEN DURING PROCEDURE. SPECIMEN SENT TO LAB. END OF PROCEDURE AT 1130. CATHETER REMOVED AND DRESSING APPLIED. NO BLEEDING NOTED. DISCHARGE INSTRUCTIONS GIVEN TO PATIENT AND VERBALIZED UNDERSTANDING. DISCHARGED VIA W/C AT 1200. AAO X3 WITH NO C/O PAIN. PATIENT WITH TEMP 102.6 AND REPORTED TO TIRSO MALDONADO AT DR Mauricio GERMAN'S OFFICE. PATIENT REFUSING TO GO TO ER FOR CHECK UP. INSTRUCTED PATIENT TO TAKE TYLENOL 1000MG BY MOUTH SOON SHE GETS HOME. IF ELEVATED TEMPERATURE PRESENT TOMORROW, SHE SHE NEEDS TO SEE DR GERMAN IN THE OFFICE. PATIENT VERBALIZED UNDERSTANDING
[2018-05-30 16:02] LABS: APPEARANCE BODY FLUID CLEAR (CLEAR); COLOR,BODY FLUID YELLOW (LT YELLOW); SPECIMENTYPE,BODY FLUID ASCITES; TOTAL VOLUME,BODY FLUID 3800 mL
[2018-05-30 16:03] LABS: BODY FLUID RBC 385 /cu. mm.; BODY FLUID WBC 143 /cu. mm.
[2018-05-30 16:31] LABS: BF LYMPHOCYTE 29 %; BF MONOCYTE 3 %; BF OTHER CELLS 9
== END | disposition home or self-care (01) ==
LOC: RAH 09:00
PROVIDERS: ATTEND Internal Medicine Gastroenterology
DX: R18.8 Other ascites (principal)
CPT/HCPCS: 36415; 49083; 80053; 85025; 85610; 87071; 87077; 87186; 87205; 88108; 88305; 89051; 96365; A4215; P9046

== ENCOUNTER → 2018-06-08 | Outpatient (CLI) | payer MEDICARE ==
[~2018-06-08] MED LIST changes: +LIDOCAINE HCL 1% 20 ML VIAL ONE
--- NOTE | 2018-06-08 09:20 | NUR ---
U/S GD PARACENTESIS PROCEDURE PERFORMED BY DR SESAY. PUNCTURE SITE LEFT SIDE ABDOMEN AND PATIENT TOLERATED PROCEDURE WELL. TOTAL REMOVED 5.0 LITERS OF CLOUDY FLUID. ALBUMIN 25% 50 GRAMS IV GIVEN DURING PROCEDURE. SPECIMEN SENT TO LAB. END OF PROCEDURE AT 1000. CATHETER REMOVED AND DRESSING APPLIED. NO BLEEDING NOTED. DISCHARGE INSTRUCTIONS GIVEN TO PATIENT AND VERBALIZED UNDERSTANDING. DISCHARGED AMBULATORY. AAO X3 WITH NO C/O PAIN
[2018-06-08 12:07] LABS: APPEARANCE BODY FLUID CLEAR (CLEAR); BODY FLUID WBC 384 /cu. mm.; COLOR,BODY FLUID YELLOW (LT YELLOW); SPECIMENTYPE,BODY FLUID ASCITES; TOTAL VOLUME,BODY FLUID 5000 mL
[2018-06-08 12:08] LABS: BODY FLUID RBC 754 /cu. mm.
[2018-06-08 12:50] LABS: BF LYMPHOCYTE 22 %; BF MESOTHELIAL 24 %; BF MONOCYTE 18 %
== END ==
LOC: RAH 08:09
PROVIDERS: ATTEND Internal Medicine Gastroenterology
DX: R18.8 Other ascites (principal)
CPT/HCPCS: 49083; 87071; 87205; 88108; 88305; 89051; 96365; A4215; P9046

== ENCOUNTER → 2018-06-15 | Outpatient (CLI) | payer MEDICARE ==
[2018-06-15 08:27] LABS: BASOPHILS % (AUTO) 0.1 % (0.0-5.0); EOSINOPHILS % (AUTO) 0.1 % (0.0-8.0); HEMATOCRIT 29.6 % (36-48); LYMPHOCYTES % (AUTO) 2.8 % (21.0-51.0); MEAN CORPUSCULAR HEMOGLOBIN 30.2 pg (27.0-33.0); MEAN CORPUSCULAR HGB CONC 32.4 g/dL (32.0-36.0); MEAN CORPUSCULAR VOLUME 93.3 fL (79-99); MONOCYTES % (AUTO) 4.3 % (3.0-13.0); NEUTROPHILS % (AUTO) 92.7 % (40.0-77.0); PLATELET COUNT (AUTO) 75 K/uL (130-400); RED BLOOD CELL COUNT(AUTO) 3.17 MIL/uL (4.00-5.50); RED CELL DISTRIBUTION WIDTH 19.1 % (11.0-15.5); WHITE BLOOD COUNT (AUTO) 16.3 K/uL (4.8-10.8)
[2018-06-15 08:41] LABS: BILIRUBIN,TOTAL 2.1 mg/dL (0.2-1.0); CREATININE 1.1 mg/dL (0.5-1.5); TOTAL PROTEIN, SERUM 6.5 g/dL (6.0-8.3)
[2018-06-15 08:44] LABS: INR 1.57 (0.85-1.15); PROTHROMBIN TIME 16.3 SEC (9.6-11.6)
--- NOTE | 2018-06-15 09:15 | NUR ---
U/S GD PARACENTESIS PROCEDURE PERFORMED BY DR CAMPOS. PUNCTURE SITE RIGHT UPPER QUADRANT AND PATIENT TOLERATED PROCEDURE WELL. TOTAL REMOVED 3.5 LITERS OF CLOUDY YELLOW FLUID. END OF PROCEDURE AT 1005. CATHETER REMOVED AND DRESSING APPLIED. NO BLEEDING NOTED. DISCHARGE INSTRUCTIONS GIVEN TO PATIENT AND VERBALIZED UNDERSTANDING. DISCHARGED AMBULATORY. AAO X3 WITH NO C/O PAIN.
[2018-06-15 12:40] LABS: APPEARANCE BODY FLUID SLIGHTLY CLOUDY (CLEAR); COLOR,BODY FLUID YELLOW (LT YELLOW); SPECIMENTYPE,BODY FLUID ASCITES; TOTAL VOLUME,BODY FLUID 3500 mL
[2018-06-15 12:41] LABS: BODY FLUID RBC 425 /cu. mm.; BODY FLUID WBC 1690 /cu. mm.
[2018-06-15 12:47] LABS: BF LYMPHOCYTE 2 %; BF MONOCYTE 3 %
== END | disposition home or self-care (01) ==
LOC: RAH 08:08
PROVIDERS: ATTEND Internal Medicine Gastroenterology
DX: K70.31 Alcoholic cirrhosis of liver with ascites (principal); F10.10 Alcohol abuse, uncomplicated; F15.90 Other stimulant use, unspecified, uncomplicated; Z79.2 Long term (current) use of antibiotics; Z79.899 Other long term (current) drug therapy; Z80.0 Family history of malignant neoplasm of digestive organs; Z82.49 Family history of ischemic heart disease and other diseases of the circulatory system; Z82.0 Family history of epilepsy and other diseases of the nervous system; Z82.5 Family history of asthma and other chronic lower respiratory diseases
CPT/HCPCS: 36415; 49083; 80053; 85025; 85610; 87071; 87205; 88108; 88305; 89051; 96365; A4215; P9046

== ENCOUNTER → 2018-06-24 | Outpatient (CLI) | payer MEDICARE ==
[~2018-06-24] MED LIST changes: +ALBUMIN (HUMAN) 25% 200 ML IV ONE; -ALBUMIN (HUMAN) 25% 200 ML IV SCH; -LIDOCAINE HCL 1% 20 ML VIAL ONE
[2018-06-24 08:39] LABS: BASOPHILS % (AUTO) 0.2 % (0.0-5.0); EOSINOPHILS % (AUTO) 0.1 % (0.0-8.0); HEMATOCRIT 27.7 % (36-48); LYMPHOCYTES % (AUTO) 3.1 % (21.0-51.0); MEAN CORPUSCULAR HGB CONC 33.9 g/dL (32.0-36.0); MEAN CORPUSCULAR VOLUME 91.7 fL (79-99); MONOCYTES % (AUTO) 3.6 % (3.0-13.0); PLATELET COUNT (AUTO) 89 K/uL (130-400); RED BLOOD CELL COUNT(AUTO) 3.02 MIL/uL (4.00-5.50); RED CELL DISTRIBUTION WIDTH 17.4 % (11.0-15.5); WHITE BLOOD COUNT (AUTO) 11.1 K/uL (4.8-10.8)
[2018-06-24 08:51] LABS: ALBUMIN 2.7 g/dL (3.5-5.0); BILIRUBIN,TOTAL 2.7 mg/dL (0.2-1.0); CREATININE 1.5 mg/dL (0.5-1.5); POTASSIUM 3.5 mmol/L (3.5-5.1); TOTAL PROTEIN, SERUM 6.3 g/dL (6.0-8.3)
[2018-06-24 09:05] LABS: PROTHROMBIN TIME 20.7 SEC (9.6-11.6)
--- NOTE | 2018-06-24 09:30 | NUR ---
U/S GD PARACENTESIS PROCEDURE PERFORMED BY DR RAMAN, PUNCTURE SITE LEFT LOWER QUADRANT AND PATIENT TOLERATED PROCEDURE WELL. TOTAL REMOVED 4.0 LITERS OF CLOUDY YELLOW FLUID. END OF PROCEDURE AT 0950. CATHETER REMOVED AND DRESSING APPLIED. NO BLEEDING NOTED. SPECIMEN SENT TO LAB. ALBUMIN 25% 50 GRAMS GIVEN IV PER MD ORDERS. DISCHARGE INSTRUCTIONS GIVEN TO PATIENT AND VERBALIZED UNDERSTANDING. DISCHARGED AMBULATORY, STALBE, AAO X3 WITH NO C/O PAIN @ 1020.
[2018-06-24 12:09] LABS: BF LYMPHOCYTE 3 %; BF MONOCYTE 2 %
[2018-06-24 12:12] LABS: APPEARANCE BODY FLUID CLOUDY (CLEAR); COLOR,BODY FLUID YELLOW (LT YELLOW); SPECIMENTYPE,BODY FLUID ASCITES; TOTAL VOLUME,BODY FLUID 4000 mL
[2018-06-24 12:13] LABS: BODY FLUID RBC 2092 /cu. mm.; BODY FLUID WBC 22940 /cu. mm.
== END ==
LOC: RAH 08:01
PROVIDERS: ATTEND Internal Medicine Gastroenterology
DX: R18.8 Other ascites (principal); Z79.01 Long term (current) use of anticoagulants
CPT/HCPCS: 36415; 49083; 80053; 85025; 85610; 87071; 87077; 87186; 87205; 88108; 88305; 89051; 96365; A4215; P9046

== ENCOUNTER → 2018-07-01 | Outpatient (CLI) | payer MEDICARE ==
[~2018-07-01] MED LIST changes: -ALBUMIN (HUMAN) 25% 200 ML IV ONE; +ALBUMIN (HUMAN) 25% 200 ML IV SCH
--- NOTE | 2018-07-01 10:16 | NUR ---
U/S GD PARACENTESIS PROCEDURE PERFORMED BY DR Alex SESAY. PUNCTURE SITE RLQ AND PATIENT TOLERATED PROCEDURE WELL. TOTAL REMOVED 4.8 LITERS OF CLOUDY YELLOW FLUID. ALBUMIN 25% 50 GRAMS IV GIVEN DURING PROCEDURE. SPECIMEN SENT TO LAB. END OF PROCEDURE AT 0945. CATHETER REMOVED AND DRESSING APPLIED. NO BLEEDING NOTED. DISCHARGE INSTRUCTIONS GIVEN TO PATIENT AND VERBALIZED UNDERSTANDING. DISCHARGED VIA W/C AT 1015. AAO X3 WITH NO C/O PAIN.
[2018-07-01 13:06] LABS: SPECIMENTYPE,BODY FLUID ASCITES
[2018-07-01 13:07] LABS: APPEARANCE BODY FLUID CLOUDY (CLEAR); COLOR,BODY FLUID YELLOW (LT YELLOW); TOTAL VOLUME,BODY FLUID 4800 mL
[2018-07-01 13:25] LABS: BODY FLUID RBC 575 /cu. mm.; BODY FLUID WBC 335 /cu. mm.
[2018-07-01 13:28] LABS: BF LYMPHOCYTE 17 %; BF MONOCYTE 9 %
== END | disposition home or self-care (01) ==
LOC: RAH 08:15
PROVIDERS: ATTEND Internal Medicine Gastroenterology
DX: K70.31 Alcoholic cirrhosis of liver with ascites (principal); Z79.01 Long term (current) use of anticoagulants; Z86.010 Personal history of colon polyps; Z98.890 Other specified postprocedural states; Z79.899 Other long term (current) drug therapy; I85.00 Esophageal varices without bleeding
CPT/HCPCS: 49083; 87071; 87205; 88108; 88305; 89051; 96365; A4215; P9046

== ENCOUNTER → 2018-07-08 | Outpatient (CLI) | payer MEDICARE ==
[~2018-07-08] MED LIST changes: +LIDOCAINE HCL 1% 20 ML VIAL ONE
[2018-07-08 10:09] LABS: MEAN CORPUSCULAR HEMOGLOBIN 31.1 pg (27.0-33.0); MEAN CORPUSCULAR HGB CONC 34.4 g/dL (32.0-36.0); MEAN CORPUSCULAR VOLUME 90.6 fL (79-99); PLATELET COUNT (AUTO) 111 K/uL (130-400); RED CELL DISTRIBUTION WIDTH 18.7 % (11.0-15.5); WHITE BLOOD COUNT (AUTO) 11.9 K/uL (4.8-10.8)
--- NOTE | 2018-07-08 10:30 | NUR ---
U/S GD PARACENTESIS PROCEDURE PERFORMED BY DR Ebony CAMPOS. PUNCTURE SITE LLQ AND PATIENT TOLERATED PROCEDURE WELL. TOTAL REMOVED 2 LITERS OF CLOUDY CELIO FLUID. ALBUMIN 25% 50 GRAMS IV GIVEN DURING PROCEDURE AND SPECIMEN SENT TO LAB. END OF PROCEDURE AT 1000. CATHETER REMOVED AND DRESSING APPLIED. NO BLEEDING NOTED. DISCHARGE INSTRUCTIONS GIVEN TO PATIENT AND VERBALIZED UNDERSTANDING. DISCHARGED VIA W/C AT 1030. AAO X3 WITH NO C/O PAIN.
[2018-07-08 13:10] LABS: APPEARANCE BODY FLUID CLOUDY (CLEAR); SPECIMENTYPE,BODY FLUID ASCITES
[2018-07-08 13:11] LABS: BODY FLUID RBC 3967 /cu. mm.; BODY FLUID WBC 317 /cu. mm.; COLOR,BODY FLUID DARK YELLOW (LT YELLOW); TOTAL VOLUME,BODY FLUID 2000 mL
[2018-07-08 13:23] LABS: BF LYMPHOCYTE 60 %; BF MESOTHELIAL 11 %; BF MONOCYTE 10 %
== END ==
LOC: RAH 07:35
PROVIDERS: ATTEND Internal Medicine Gastroenterology
DX: K70.31 Alcoholic cirrhosis of liver with ascites (principal); Z86.010 Personal history of colon polyps; Z98.890 Other specified postprocedural states; Z79.899 Other long term (current) drug therapy; D64.9 Anemia, unspecified; I85.00 Esophageal varices without bleeding
CPT/HCPCS: 36415; 49083; 85027; 87071; 87205; 88108; 88305; 89051; 96365; A4215; P9046

== ENCOUNTER → 2018-07-15 | Outpatient (CLI) | payer MEDICARE ==
[~2018-07-15] MED LIST changes: -LIDOCAINE HCL 1% 20 ML VIAL ONE
[2018-07-15 08:20] LABS: EOSINOPHILS % (AUTO) 1.5 % (0.0-8.0); MEAN CORPUSCULAR HEMOGLOBIN 31.7 pg (27.0-33.0); MEAN CORPUSCULAR HGB CONC 33.4 g/dL (32.0-36.0); MEAN CORPUSCULAR VOLUME 94.9 fL (79-99); MONOCYTES % (AUTO) 10.5 % (3.0-13.0); PLATELET COUNT (AUTO) 48 K/uL (130-400); RED BLOOD CELL COUNT(AUTO) 2.64 MIL/uL (4.00-5.50); RED CELL DISTRIBUTION WIDTH 21.3 % (11.0-15.5); WHITE BLOOD COUNT (AUTO) 4.3 K/uL (4.8-10.8)
[2018-07-15 08:26] LABS: CREATININE 0.9 mg/dL (0.5-1.5); POTASSIUM 4.2 mmol/L (3.5-5.1)
[2018-07-15 08:27] LABS: INR 1.55 (0.85-1.15); PROTHROMBIN TIME 16.1 SEC (9.6-11.6)
[2018-07-15 08:31] LABS: ALBUMIN 2.6 g/dL (3.5-5.0); BILIRUBIN,TOTAL 1.8 mg/dL (0.2-1.0); TOTAL PROTEIN, SERUM 6.1 g/dL (6.0-8.3)
--- NOTE | 2018-07-15 09:09 | NUR ---
PROCEDURE PATIENT SCHEDULED FOR U/S GD PARACENTESIS. IMAGES TAKEN AND REVIEWED BY DR Alex SESAY. MINIMAL FLUID SEEN WITH HIGH RISK OF BOWEL PERFORATION. PROCEDURE CANCELLED AND OUTCOME EXPLAINED TO PATIENT. PATIENT VERBALIZED UNDERSTANDING AND DISCHARGED VIA AMBULATION.
== END ==
LOC: RAH 07:44
PROVIDERS: ATTEND Internal Medicine Gastroenterology
DX: R18.8 Other ascites (principal); Z79.01 Long term (current) use of anticoagulants
CPT/HCPCS: 36415; 76705; 80053; 85025; 85610; P9046

== ENCOUNTER → 2018-07-21 | Outpatient (CLI) | payer MEDICARE ==
[~2018-07-21] MED LIST changes: +LIDOCAINE HCL 1% 20 ML VIAL ONE
--- NOTE | 2018-07-21 09:10 | NUR ---
U/S GD PARACENTESIS PROCEDURE PERFORMED BY DR SESAY. PUNCTURE SITE LEFT LOWER QUADRANT AND PATIENT TOLERATED PROCEDURE WELL. TOTAL REMOVED 2.2 LITERS OF CLEAR YELLOW FLUID. END OF PROCEDURE AT 0930. CATHETER REMOVED AND DRESSING APPLIED. NO BLEEDING NOTED. ALBUMIN 25 % 50 GRAMS GIVEN IV PER MD ORDERS. DISCHARGE INSTRUCTIONS GIVEN TO PATIENT AND VERBALIZED UNDERSTANDING. DISCHARGED AMBULATORY WITH ASST OF CANE @ 0950, STABLE. AAO X3 WITH NO C/O PAIN.
== END | disposition home or self-care (01) ==
LOC: RAH 07:51
PROVIDERS: ATTEND Internal Medicine Gastroenterology
DX: K70.31 Alcoholic cirrhosis of liver with ascites (principal); D64.9 Anemia, unspecified; Z86.010 Personal history of colon polyps; I85.00 Esophageal varices without bleeding
CPT/HCPCS: 49083; 96365; A4215; P9046

== ENCOUNTER → 2018-07-29 | Outpatient (CLI) | payer MEDICARE ==
[~2018-07-29] MED LIST changes: -ALBUMIN (HUMAN) 25% 200 ML IV SCH; -LIDOCAINE HCL 1% 20 ML VIAL ONE
--- NOTE | 2018-07-29 08:55 | NUR ---
U/S GD PARACENTESIS PROCEDURE PERFORMED BY DR GAMBLE. PUNCTURE SITE LEFT SIDE ABDOMEN AND PATIENT TOLERATED PROCEDURE WELL. TOTAL REMOVED 2.6 LITERS OF CLEAR YELLOW FLUID. SPECIMEN SENT TO LAB. END OF PROCEDURE AT 0925. CATHETER REMOVED AND DRESSING APPLIED. NO BLEEDING NOTED. DISCHARGE INSTRUCTIONS GIVEN TO PATIENT AND VERBALIZED UNDERSTANDING. DISCHARGED AMBULATORY @ 0940, STABLE, AAO X3 WITH NO C/O PAIN.
[2018-07-29 13:48] LABS: APPEARANCE BODY FLUID SLIGHTLY CLOUDY (CLEAR); SPECIMENTYPE,BODY FLUID ASCITES
[2018-07-29 13:49] LABS: COLOR,BODY FLUID YELLOW (LT YELLOW); TOTAL VOLUME,BODY FLUID 2600 mL
[2018-07-29 13:50] LABS: BODY FLUID RBC 150 /cu. mm.; BODY FLUID WBC 107 /cu. mm.
[2018-07-29 13:53] LABS: BF LYMPHOCYTE 76 %; BF MONOCYTE 24 %
== END | disposition home or self-care (01) ==
LOC: RAH 08:09
PROVIDERS: ATTEND Internal Medicine Gastroenterology
DX: R18.8 Other ascites (principal)
CPT/HCPCS: 49083; 87071; 87205; 89051; A4215

== ENCOUNTER → 2018-08-05 | Outpatient (CLI) | payer MEDICARE ==
[~2018-08-05] MED LIST changes: +LIDOCAINE HCL 1% 20 ML VIAL ONE
--- NOTE | 2018-08-05 09:30 | NUR ---
ALBUMIN INFUSION 2.4 LITERS OF CLOUDY YELLOW FLUID REMOVED. PATIENT DID NOT MEET CRITERIA FOR ALBUMIN INFUSION PER PROTOCOL. NO ALBUMIN GIVEN ORDERED BY DR Mauricio GERMAN.
--- NOTE | 2018-08-05 09:45 | NUR ---
U/S GD PARACENTESIS PROCEDURE PERFORMED BY DR Alex SESAY. PUNCTURE SITE LLQ AND PATIENT TOLERATED PROCEDURE WELL. TOTAL REMOVED 2.4 LITERS OF CLOUDY YELLOW FLUID. END OF PROCEDURE AT 0915. CATHETER REMOVED AND DRESSING APPLIED. NO BLEEDING NOTED. DISCHARGE INSTRUCTIONS GIVEN TO PATIENT AND VERBALIZED UNDERSTANDING. DISCHARGED VIA AMBULATION AT 0945. AAO X3 WITH NO C/O PAIN.
== END | disposition home or self-care (01) ==
LOC: RAH 08:03
PROVIDERS: ATTEND Internal Medicine Gastroenterology
DX: R18.8 Other ascites (principal)
CPT/HCPCS: 49083; A4215

== ENCOUNTER 2018-08-26 09:22 | Inpatient (IN) | payer MEDICARE | END 2018-08-26 14:26 | disposition left against medical advice (07) | LOC: EDH 09:22 → EDHIP 11:28 ==

== ENCOUNTER → 2018-08-31 | Outpatient (CLI) | payer MEDICARE ==
[2018-08-31 09:00] LABS: BASOPHILS % (AUTO) 4.9 % (0.0-5.0); EOSINOPHILS % (AUTO) 2.7 % (0.0-8.0); HEMATOCRIT 29.6 % (36-48); LYMPHOCYTES % (AUTO) 11.8 % (21.0-51.0); MEAN CORPUSCULAR HEMOGLOBIN 30.5 pg (27.0-33.0); MEAN CORPUSCULAR HGB CONC 32.5 g/dL (32.0-36.0); MEAN CORPUSCULAR VOLUME 93.8 fL (79-99); MONOCYTES % (AUTO) 9.7 % (3.0-13.0); NEUTROPHILS % (AUTO) 70.9 % (40.0-77.0); NUCLEATED RED BLOOD CELLS 0.1 % (0.0-0.19); PLATELET COUNT (AUTO) 106 K/uL (130-400); RED BLOOD CELL COUNT(AUTO) 3.16 MIL/uL (4.00-5.50); RED CELL DISTRIBUTION WIDTH 16.5 % (11.0-15.5); WHITE BLOOD COUNT (AUTO) 4.2 K/uL (4.8-10.8)
[2018-08-31 09:14] LABS: ALBUMIN 2.6 g/dL (3.5-5.0); BILIRUBIN,TOTAL 0.8 mg/dL (0.2-1.0); CREATININE 0.7 mg/dL (0.5-1.5); POTASSIUM 4.5 mmol/L (3.5-5.1); TOTAL PROTEIN, SERUM 6.7 g/dL (6.0-8.3)
[2018-08-31 09:21] LABS: INR 1.3 (0.85-1.15); PROTHROMBIN TIME 13.6 SEC (9.6-11.6)
--- NOTE | 2018-08-31 09:40 | NUR ---
U/S GD PARACENTESIS PROCEDURE PERFORMED BY DR Juan Antonio GAMBLE. PUNCTURE SITE LLQ AND PATIENT TOLERATED PROCEDURE WELL. TOTAL REMOVED 3.7 LITERS OF CLOUDY YELLOW FLUID. END OF PROCEDURE AT 1005. CATHETER REMOVED AND DRESSING APPLIED. NO BLEEDING NOTED. DISCHARGE INSTRUCTIONS GIVEN TO PATIENT AND VERBALIZED UNDERSTANDING. DISCHARGED VIA AMBULATION AT 1025. AAO X3 WITH NO C/O PAIN.
[2018-08-31 13:16] LABS: APPEARANCE BODY FLUID CLEAR (CLEAR); COLOR,BODY FLUID YELLOW (LT YELLOW); SPECIMENTYPE,BODY FLUID ASCITES; TOTAL VOLUME,BODY FLUID 3700 mL
[2018-08-31 13:17] LABS: BODY FLUID RBC 174 /cu. mm.; BODY FLUID WBC 223 /cu. mm.
[2018-08-31 13:53] LABS: BF LYMPHOCYTE 79 %; BF MESOTHELIAL 14 %; BF MONOCYTE 4 %
== END | disposition home or self-care (01) ==
LOC: RAH 08:22
PROVIDERS: ATTEND Internal Medicine Gastroenterology
DX: K70.31 Alcoholic cirrhosis of liver with ascites (principal); I85.00 Esophageal varices without bleeding; K26.9 Duodenal ulcer, unspecified as acute or chronic, without hemorrhage or perforation; D64.9 Anemia, unspecified; Z86.010 Personal history of colon polyps; K40.90 Unilateral inguinal hernia, without obstruction or gangrene, not specified as recurrent
CPT/HCPCS: 36415; 49083; 80053; 85025; 85610; 87071; 87205; 89051; A4215

== ENCOUNTER → 2018-09-07 | Outpatient (CLI) | payer MEDICARE ==
--- NOTE | 2018-09-07 09:00 | NUR ---
U/S GD PARACENTESIS PROCEDURE PERFORMED BY DR SESAY. PUNCTURE SITE RIGHT SIDE ABDOMEN AND PATIENT TOLERATED PROCEDURE WELL. TOTAL REMOVED 3.4 LITERS OF CLOUDY YELLOW FLUID. END OF PROCEDURE AT 0920. CATHETER REMOVED AND DRESSING APPLIED. NO BLEEDING NOTED. SPECIMEN SENT TO LAB. DISCHARGE INSTRUCTIONS GIVEN TO PATIENT AND VERBALIZED UNDERSTANDING. DISCHARGED AMBULATORY, STABLE, AAO X3 WITH NO C/O PAIN.
[2018-09-07 12:06] LABS: SPECIMENTYPE,BODY FLUID ASCITES
[2018-09-07 12:07] LABS: APPEARANCE BODY FLUID CLEAR (CLEAR); COLOR,BODY FLUID YELLOW (LT YELLOW); TOTAL VOLUME,BODY FLUID 3400 mL
[2018-09-07 12:08] LABS: BODY FLUID RBC 933 /cu. mm.; BODY FLUID WBC 258 /cu. mm.
[2018-09-07 12:20] LABS: BF LYMPHOCYTE 67 %; BF MESOTHELIAL 16 %; BF MONOCYTE 13 %
== END | disposition home or self-care (01) ==
LOC: RAH 08:11
PROVIDERS: ATTEND Internal Medicine Gastroenterology
DX: K70.31 Alcoholic cirrhosis of liver with ascites (principal); Z86.010 Personal history of colon polyps; I85.00 Esophageal varices without bleeding; Z98.890 Other specified postprocedural states; Z79.899 Other long term (current) drug therapy; K29.70 Gastritis, unspecified, without bleeding
CPT/HCPCS: 49083; 87071; 87205; 89051; A4215

== ENCOUNTER → 2018-09-14 | Outpatient (CLI) | payer MEDICARE ==
[~2018-09-14] MED LIST changes: -LIDOCAINE HCL 1% 20 ML VIAL ONE
--- NOTE | 2018-09-14 09:30 | NUR ---
U/S GD PARACENTESIS PROCEDURE PERFORMED BY DR Alex SESAY. PUNCTURE SITE RLQ AND PATIENT TOLERATED PROCEDURE WELL. TOTAL REMOVED 3.6 LITERS OF CLOUDY YELLOW FLUID. END OF PROCEDURE AT 0900. CATHETER REMOVED AND DRESSING APPLIED. NO BLEEDING NOTED. DISCHARGE INSTRUCTIONS GIVEN TO PATIENT AND VERBALIZED UNDERSTANDING. DISCHARGED VIA AMBULATION AT 0930. AAO X3 WITH NO C/O PAIN.
== END | disposition home or self-care (01) ==
LOC: RAH 07:58
PROVIDERS: ATTEND Internal Medicine Gastroenterology
DX: R18.8 Other ascites (principal)
CPT/HCPCS: 49083; A4215

== ENCOUNTER → 2018-09-21 | Outpatient (CLI) | payer MEDICARE ==
--- NOTE | 2018-09-21 09:30 | NUR ---
U/S GD PARACENTESIS PROCEDURE PERFORMED BY DR GAMBLE. PUNCTURE SITE RIGHT LOWER QUADRANT AND PATIENT TOLERATED PROCEDURE WELL. TOTAL REMOVED 5.3 LITERS OF CLOUDY YELLOW ASCITES FLUID. END OF PROCEDURE AT 0950. CATHETER REMOVED AND DRESSING APPLIED. NO BLEEDING NOTED. SPECIMEN SENT TO LAB. PT REFUSED ALBUMIN 25 % 30 GRAMS GIVEN IV PER MD ORDERS AND PROTOCOL. DISCHARGE INSTRUCTIONS GIVEN TO PATIENT AND VERBALIZED UNDERSTANDING. DISCHARGED AMBULATORY, STABLE, AAO X3 WITH NO C/O PAIN
[2018-09-21 13:04] LABS: APPEARANCE BODY FLUID CLEAR (CLEAR); COLOR,BODY FLUID YELLOW (LT YELLOW); SPECIMENTYPE,BODY FLUID ASCITES; TOTAL VOLUME,BODY FLUID 6300 mL
[2018-09-21 13:05] LABS: BODY FLUID RBC 318 /cu. mm.; BODY FLUID WBC 166 /cu. mm.
[2018-09-21 13:33] LABS: BF LYMPHOCYTE 66 %; BF MESOTHELIAL 13 %; BF MONOCYTE 21 %
== END | disposition home or self-care (01) ==
LOC: RAH 08:10
PROVIDERS: ATTEND Internal Medicine Gastroenterology
DX: R18.8 Other ascites (principal); Z79.01 Long term (current) use of anticoagulants
CPT/HCPCS: 49083; 87071; 87205; 89051; A4215

== ENCOUNTER → 2018-09-28 | Outpatient (CLI) | payer MEDICARE ==
[~2018-09-28] MED LIST changes: +ALBUMIN (HUMAN) 25% 100 ML IV ONE; +ALBUMIN (HUMAN) 25% 100 ML IV SCH; +LIDOCAINE HCL 1% 20 ML VIAL ONE
[2018-09-28 08:25] LABS: BASOPHILS % (AUTO) 1.3 % (0.0-5.0); LYMPHOCYTES % (AUTO) 19.3 % (21.0-51.0); MEAN CORPUSCULAR HEMOGLOBIN 30.1 pg (27.0-33.0); MEAN CORPUSCULAR HGB CONC 33.9 g/dL (32.0-36.0); MEAN CORPUSCULAR VOLUME 88.9 fL (79-99); MONOCYTES % (AUTO) 11.2 % (3.0-13.0); NEUTROPHILS % (AUTO) 66.2 % (40.0-77.0); NUCLEATED RED BLOOD CELLS 0.1 % (0.0-0.19); PLATELET COUNT (AUTO) 82 K/uL (130-400); RED BLOOD CELL COUNT(AUTO) 3.27 MIL/uL (4.00-5.50); RED CELL DISTRIBUTION WIDTH 15.9 % (11.0-15.5); WHITE BLOOD COUNT (AUTO) 3.4 K/uL (4.8-10.8)
[2018-09-28 08:33] LABS: CREATININE 0.8 mg/dL (0.5-1.5); POTASSIUM 4.5 mmol/L (3.5-5.1)
[2018-09-28 08:35] LABS: INR 1.34 (0.85-1.15)
[2018-09-28 08:39] LABS: ALBUMIN 2.2 g/dL (3.5-5.0); BILIRUBIN,TOTAL 1.1 mg/dL (0.2-1.0)
--- NOTE | 2018-09-28 09:10 | NUR ---
U/S GD PARACENTESIS PROCEDURE PERFORMED BY DR RAMAN. PUNCTURE SITE RIGHT UPPER QUADRANT AND PATIENT TOLERATED PROCEDURE WELL. TOTAL REMOVED 7.0 LITERS OF CLOUDY YELLOW FLUID. ALBUMIN 25% 25 GRAMS IV GIVEN DURING PROCEDURE. SPECIMEN SENT TO LAB. END OF PROCEDURE AT 0940. CATHETER REMOVED AND DRESSING APPLIED. NO BLEEDING NOTED. DISCHARGE INSTRUCTIONS GIVEN TO PATIENT AND VERBALIZED UNDERSTANDING. PIV DC'D FROM THE RIGHT FOREARM, BANDAID APPLIED, DRESSING DRY AND INTACT. DISCHARGED AMBULATORY. STABLE, AAO X3 WITH NO C/O PAIN.
[2018-09-28 12:20] LABS: APPEARANCE BODY FLUID CLEAR (CLEAR); COLOR,BODY FLUID YELLOW (LT YELLOW); SPECIMENTYPE,BODY FLUID ASCITES; TOTAL VOLUME,BODY FLUID 7000 mL
[2018-09-28 12:21] LABS: BODY FLUID RBC 132 /cu. mm.; BODY FLUID WBC 188 /cu. mm.
[2018-09-28 13:49] LABS: BF LYMPHOCYTE 78 %; BF MESOTHELIAL 15 %
== END | disposition home or self-care (01) ==
LOC: RAH 07:46
PROVIDERS: ATTEND Internal Medicine Gastroenterology
DX: R18.8 Other ascites (principal)
CPT/HCPCS: 36415; 49083; 80053; 85025; 85610; 87071; 87205; 89051; 96365; A4215; P9046

== ENCOUNTER → 2018-10-05 | Outpatient (CLI) | payer MEDICARE ==
[~2018-10-05] MED LIST changes: -ALBUMIN (HUMAN) 25% 100 ML IV ONE; -ALBUMIN (HUMAN) 25% 100 ML IV SCH; +ALBUMIN (HUMAN) 25% 200 ML IV SCH
--- NOTE | 2018-10-05 08:50 | NUR ---
US GUIDED PARACENTESIS PROCEDURE PERFOROMED BY DR. GAMBLE. PUNCTURE SITE TO THE RIGHT SIDE OF THE ABDOMEN. PATIENT TOLERATED PROCEDURE WELL. TOTAL REMOVED 6.0 LITERS OF CLOUDY YELLOW COLORED FLUID. END OF PROCEDURE AT 0910. CATHETER REMOVED AND DRESSIN GAPPLIED. NO BLEEDING NOTED. ALBUMIN 25% 50 GRAMS GIVEN VIA PIV STARTED TO RIGHT HAND 20 GUAGE X 1 STICK. DISCHARGE INSTRUCTIONS GIVEN TO PATIENT AND VERBALIZED UNDERSTANDING. DISCHARGED AMBULATORY @ 1020, STABLE, AAO X 3 WITH NO C/O PAIN.
[2018-10-05 13:14] LABS: APPEARANCE BODY FLUID CLEAR (CLEAR); COLOR,BODY FLUID LT YELLOW (LT YELLOW); SPECIMENTYPE,BODY FLUID ASCITES; TOTAL VOLUME,BODY FLUID 6000 mL
[2018-10-05 13:17] LABS: BODY FLUID RBC 220 /cu. mm.; BODY FLUID WBC 85 /cu. mm.
[2018-10-05 13:21] LABS: BF LYMPHOCYTE 75 %; BF MESOTHELIAL 2 %; BF MONOCYTE 5 %
== END | disposition home or self-care (01) ==
LOC: RAH 08:04
PROVIDERS: ATTEND Internal Medicine Gastroenterology
DX: R18.8 Other ascites (principal)
CPT/HCPCS: 49083; 87071; 87205; 89051; 96365; A4215; P9046

== ENCOUNTER → 2018-10-12 | Outpatient (CLI) | payer MEDICARE ==
[~2018-10-12] MED LIST changes: +ALBUMIN (HUMAN) 25% 200 ML IV ONE
[2018-10-12 08:42] LABS: EOSINOPHILS % (AUTO) 2.1 % (0.0-8.0); HEMATOCRIT 28.4 % (36-48); LYMPHOCYTES % (AUTO) 13.7 % (21.0-51.0); MEAN CORPUSCULAR HEMOGLOBIN 29.2 pg (27.0-33.0); MEAN CORPUSCULAR HGB CONC 33.6 g/dL (32.0-36.0); MEAN CORPUSCULAR VOLUME 86.9 fL (79-99); MONOCYTES % (AUTO) 12.2 % (3.0-13.0); NUCLEATED RED BLOOD CELLS 0.1 % (0.0-0.19); PLATELET COUNT (AUTO) 90 K/uL (130-400); RED BLOOD CELL COUNT(AUTO) 3.27 MIL/uL (4.00-5.50); RED CELL DISTRIBUTION WIDTH 15.4 % (11.0-15.5)
[2018-10-12 08:50] LABS: CREATININE 0.8 mg/dL (0.5-1.5); POTASSIUM 4.3 mmol/L (3.5-5.1)
[2018-10-12 08:51] LABS: INR 1.29 (0.85-1.15); PROTHROMBIN TIME 13.5 SEC (9.6-11.6)
[2018-10-12 08:55] LABS: ALBUMIN 2.5 g/dL (3.5-5.0); BILIRUBIN,TOTAL 1.1 mg/dL (0.2-1.0)
--- NOTE | 2018-10-12 09:20 | NUR ---
US GUIDED PARACENTESIS PROCEDURE PERFORMED BY DR. GAMBLE. PUNCTURE SITE LEFT LOWER QUADRANT. PATIENT TOLERATED PROCEDURE WELL. TOTAL REMOVED 5.9 LITERS OF CLOUDY YELLOW FLUID. END OF PROCEDURE 0950. CATHETER REMOVED, DRESSING APPLIED. NO BLEEDING NOTED. ALBUMIN 25% 50 GRAMS GIVEN PIV RIGHT WRIST. PT TOLERATED WELL. DISCHARGE INSTRUCTIONS GIVEN TO PATIENT AND VERBALIZED UNDERSTANDING. D/C'D PIV, BANDAID APPLIED. DISCHARGED AMBULATORY @ 1030. AAO X 3. WITH NO C/O PAIN.
[2018-10-12 11:38] LABS: APPEARANCE BODY FLUID CLEAR (CLEAR); SPECIMENTYPE,BODY FLUID ASCITES
[2018-10-12 11:39] LABS: BODY FLUID RBC 490 /cu. mm.; BODY FLUID WBC 152 /cu. mm.; COLOR,BODY FLUID YELLOW (LT YELLOW); TOTAL VOLUME,BODY FLUID 5900 mL
[2018-10-12 12:07] LABS: BF LYMPHOCYTE 73 %; BF MESOTHELIAL 16 %; BF MONOCYTE 11 %
== END | disposition home or self-care (01) ==
LOC: RAH 08:12
PROVIDERS: ATTEND Internal Medicine Gastroenterology
DX: R18.8 Other ascites (principal)
CPT/HCPCS: 36415; 49083; 80053; 85025; 85610; 87071; 87205; 89051; 96365; A4215; P9046

== ENCOUNTER → 2018-10-19 | Outpatient (CLI) | payer MEDICARE ==
[~2018-10-19] MED LIST changes: -ALBUMIN (HUMAN) 25% 200 ML IV SCH; -LIDOCAINE HCL 1% 20 ML VIAL ONE
--- NOTE | 2018-10-19 08:30 | NUR ---
US GUIDED PARACENTESIS PROCEDURE PERFORMED BY DR. GAMBLE. PUNCTURE SITE LEFT LOWER QUADRANT. PATIENT TOLERATED PROCEDURE WELL. TOTAL REMOVED 5.0 LITERS OF CLOUDY YELLOW FLUID. END OF PROCEDURE 0855. CATHETER REMOVED, DRESSING APPLIED. NO BLEEDING NOTED. ALBUMIN 25% 50 GRAMS GIVEN PIV RIGHT HAND. PT TOLERATED WELL. DISCHARGE INSTRUCTIONS GIVEN TO PATIENT AND VERBALIZED UNDERSTANDING. D/C'D PIV, BANDAID APPLIED. DISCHARGED AMBULATORY @ 1000. AAO X 3. WITH NO C/O PAIN.
[2018-10-19 09:56] LABS: APPEARANCE BODY FLUID SLIGHTLY CLOUDY (CLEAR); COLOR,BODY FLUID YELLOW (LT YELLOW); SPECIMENTYPE,BODY FLUID ASCITES; TOTAL VOLUME,BODY FLUID 5000 mL
[2018-10-19 09:57] LABS: BODY FLUID RBC 3849 /cu. mm.; BODY FLUID WBC 167 /cu. mm.
[2018-10-19 10:04] LABS: BF EOSINOPHIL 1 %; BF LYMPHOCYTE 92 %; BF MESOTHELIAL 1 %; BF MONOCYTE 3 %
== END | disposition home or self-care (01) ==
LOC: RAH 07:48
PROVIDERS: ATTEND Internal Medicine Gastroenterology
DX: R18.8 Other ascites (principal); Z79.01 Long term (current) use of anticoagulants
CPT/HCPCS: 49083; 87071; 87205; 88108; 88305; 88341; 88342; 89051; 96365; A4215; P9046

== ENCOUNTER → 2018-10-26 | Outpatient (CLI) | payer MEDICARE ==
[~2018-10-26] MED LIST changes: +ALBUMIN (HUMAN) 25% 100 ML IV SCH; -ALBUMIN (HUMAN) 25% 200 ML IV ONE
[2018-10-26 08:25] LABS: BASOPHILS % (AUTO) 1.4 % (0.0-5.0); EOSINOPHILS % (AUTO) 2.9 % (0.0-8.0); HEMATOCRIT 28.2 % (36-48); LYMPHOCYTES % (AUTO) 14.7 % (21.0-51.0); MEAN CORPUSCULAR HEMOGLOBIN 28.1 pg (27.0-33.0); MEAN CORPUSCULAR VOLUME 85.3 fL (79-99); MONOCYTES % (AUTO) 12.8 % (3.0-13.0); NEUTROPHILS % (AUTO) 68.2 % (40.0-77.0); PLATELET COUNT (AUTO) 84 K/uL (130-400); RED BLOOD CELL COUNT(AUTO) 3.31 MIL/uL (4.00-5.50); RED CELL DISTRIBUTION WIDTH 15.9 % (11.0-15.5); WHITE BLOOD COUNT (AUTO) 3.4 K/uL (4.8-10.8)
[2018-10-26 08:40] LABS: ALBUMIN 2.9 g/dL (3.5-5.0); BILIRUBIN,TOTAL 0.9 mg/dL (0.2-1.0); CREATININE 0.9 mg/dL (0.5-1.5); POTASSIUM 4.5 mmol/L (3.5-5.1)
[2018-10-26 08:47] LABS: INR 1.33 (0.85-1.15); PROTHROMBIN TIME 13.9 SEC (9.6-11.6)
--- NOTE | 2018-10-26 08:50 | NUR ---
U/S GD PARACENTESIS PROCEDURE PERFORMED BY DR RAMAN. PUNCTURE SITE LLQ AND PATIENT TOLERATED PROCEDURE WELL. TOTAL REMOVED 5.1 LITERS OF CLOUDY YELLOW FLUID. END OF PROCEDURE AT 0925. CATHETER REMOVED AND DRESSING APPLIED. NO BLEEDING NOTED. SPECIMEN SENT TO LAB. ALBUMIN 25 % 25 GRAMS GIVEN IV PER MD ORDERS. DISCHARGE INSTRUCTIONS GIVEN TO PATIENT AND VERBALIZED UNDERSTANDING. DISCHARGED AMBULATORY, STABLE, AAO X3 WITH NO C/O PAIN.
[2018-10-26 10:45] LABS: APPEARANCE BODY FLUID CLEAR (CLEAR); BODY FLUID RBC 818 /cu. mm.; BODY FLUID WBC 152 /cu. mm.; COLOR,BODY FLUID YELLOW (LT YELLOW); SPECIMENTYPE,BODY FLUID ASCITES; TOTAL VOLUME,BODY FLUID 5100 mL
[2018-10-26 10:55] LABS: BF LYMPHOCYTE 67 %; BF MESOTHELIAL 25 %; BF MONOCYTE 7 %
== END ==
LOC: RAH 08:01
PROVIDERS: ATTEND Internal Medicine Gastroenterology
DX: R18.8 Other ascites (principal)
CPT/HCPCS: 36415; 49083; 80053; 85025; 85610; 87071; 87205; 88108; 88305; 88341; 88342; 89051; 96365; A4215; P9046

== ENCOUNTER → 2018-11-02 | Outpatient (CLI) | payer MEDICARE ==
--- NOTE | 2018-11-02 11:05 | NUR ---
US GUIDED PARACENTESIS PROCEDURE PERFORMED BY DR. GAMBLE. PUNCTURE SITE TO THE LEFT LOWER QUADRANT. PROCEDURE TOLERATED WELL. 5.0 LITERS OF CLOUDY CELIO COLORED FLUID REMOVED. END OF PROCEDURE AT 0945. CATHETER REMOVED AND DRESSING APPLIED. NO BLEEDING NOTED. ALBUMIN 25% 25 GRAMS IV GIVEN PER PROTOCOL. PATIENT TOLERATED WELL. DISCHARGE INSTRUCTIONS GIVEN TO PATIENT. PT VERBALIZED UNDERSTANDING. PT STABLE, AAO X3. NO C/O PAIN.
== END ==
LOC: RAH 10:15
PROVIDERS: ATTEND Internal Medicine Gastroenterology
DX: R18.8 Other ascites (principal)
CPT/HCPCS: 49083; 88108; 88305; 96365; A4215; P9046

== ENCOUNTER → 2018-11-09 | Outpatient (CLI) | payer MEDICARE ==
--- NOTE | 2018-11-09 09:00 | NUR ---
US GUIDED PARACENTESIS PROCEDURE PERFORMED BY DR. SESAY. PUNCTURE SITE TO THE RIGHT LOWER QUADRANT. PROCEDURE TOLERATED WELL. 6.1 LITERS OF CLOUDY CELIO COLORED CLOUDY FLUID REMOVED. END OF PROCEDURE AT 0940. CATHETER REMOVED AND DRESSING APPLIED. NO BLEEDING NOTED. ALBUMIN 25% 25 GRAMS IV GIVEN PER PROTOCOL. PATIENT TOLERATED WELL. DISCHARGE INSTRUCTIONS GIVEN TO PATIENT. PT VERBALIZED UNDERSTANDING. PT STABLE, AAO X3. NO C/O PAIN.
[2018-11-09 12:59] LABS: APPEARANCE BODY FLUID CLEAR (CLEAR); COLOR,BODY FLUID YELLOW (LT YELLOW); SPECIMENTYPE,BODY FLUID ASCITES; TOTAL VOLUME,BODY FLUID 6100 mL
[2018-11-09 13:03] LABS: BODY FLUID WBC 142 /cu. mm.
[2018-11-09 13:05] LABS: BODY FLUID RBC 493 /cu. mm.
[2018-11-09 13:18] LABS: BF LYMPHOCYTE 70 %; BF MESOTHELIAL 17 %; BF MONOCYTE 11 %
== END | disposition home or self-care (01) ==
LOC: RAH 08:10
PROVIDERS: ATTEND Internal Medicine Gastroenterology
DX: R18.8 Other ascites (principal)
CPT/HCPCS: 49083; 87071; 87205; 88108; 88305; 89051; 96365; A4215; P9046

== ENCOUNTER → 2018-11-16 | Outpatient (CLI) | payer MEDICARE ==
[~2018-11-16] VITALS: Ht 160.1 cm; Wt 59.0 kg
[2018-11-16 08:13] LABS: BASOPHILS % (AUTO) 1.1 % (0.0-5.0); EOSINOPHILS % (AUTO) 1.6 % (0.0-8.0); HEMATOCRIT 28.9 % (36-48); LYMPHOCYTES % (AUTO) 15.8 % (21.0-51.0); MEAN CORPUSCULAR HEMOGLOBIN 27.2 pg (27.0-33.0); MEAN CORPUSCULAR HGB CONC 32.7 g/dL (32.0-36.0); MEAN CORPUSCULAR VOLUME 83.5 fL (79-99); NEUTROPHILS % (AUTO) 69.5 % (40.0-77.0); PLATELET COUNT (AUTO) 77 K/uL (130-400); RED BLOOD CELL COUNT(AUTO) 3.46 MIL/uL (4.00-5.50); RED CELL DISTRIBUTION WIDTH 17.4 % (11.0-15.5)
[2018-11-16 08:24] LABS: INR 1.25 (0.85-1.15); PROTHROMBIN TIME 13.1 SEC (9.6-11.6)
[2018-11-16 08:25] LABS: ALBUMIN 2.7 g/dL (3.5-5.0); BILIRUBIN,TOTAL 0.9 mg/dL (0.2-1.0); CREATININE 0.7 mg/dL (0.5-1.5); POTASSIUM 4.3 mmol/L (3.5-5.1); TOTAL PROTEIN, SERUM 5.9 g/dL (6.0-8.3)
--- NOTE | 2018-11-16 09:15 | NUR ---
US GUIDED PARACENTESIS PROCEDURE PERFORMED BY DR. GAMBLE. PUNCTURE SITE TO THE RIGHT LOWER QUADRANT. PROCEDURE TOLERATED WELL. 6.2 LITERS OF CLOUDY MONROY COLORED CLOUDY FLUID REMOVED. END OF PROCEDURE AT 0935. CATHETER REMOVED AND DRESSING APPLIED. NO BLEEDING NOTED. ALBUMIN 25% 25 GRAMS IV GIVEN PER PROTOCOL. PATIENT TOLERATED WELL. DISCHARGE INSTRUCTIONS GIVEN TO PATIENT. PT VERBALIZED UNDERSTANDING. PT STABLE, AAO X3. NO C/O PAIN.
[2018-11-16 12:04] LABS: APPEARANCE BODY FLUID CLEAR (CLEAR); BODY FLUID WBC 129 /cu. mm.; COLOR,BODY FLUID YELLOW (LT YELLOW); SPECIMENTYPE,BODY FLUID ASCITES; TOTAL VOLUME,BODY FLUID 6200 mL
[2018-11-16 12:05] LABS: BODY FLUID RBC 719 /cu. mm.
[2018-11-16 12:27] LABS: BF LYMPHOCYTE 44 %; BF MESOTHELIAL 44 %; BF MONOCYTE 11 %
== END ==
LOC: RAH 07:51
PROVIDERS: ATTEND Internal Medicine Gastroenterology
DX: R18.8 Other ascites (principal); Z79.01 Long term (current) use of anticoagulants
CPT/HCPCS: 36415; 49083; 80053; 85025; 85610; 87071; 87205; 88108; 88305; 89051; 96365; A4215; P9046

== ENCOUNTER → 2018-11-23 | Outpatient (CLI) | payer MEDICARE ==
--- NOTE | 2018-11-23 09:25 | NUR ---
US GUIDED PARACENTESIS PROCEDURE PERFORMED BY DR. GAMBLE. PUNCTURE SITE TO THE LEFT LOWER QUADRANT. PROCEDURE TOLERATED WELL. 6.7 LITERS OF CLOUDY MONROY COLORED CLOUDY ASCITES FLUID REMOVED. END OF PROCEDURE AT 0955. CATHETER REMOVED AND DRESSING APPLIED. NO BLEEDING NOTED. ALBUMIN 25% 25 GRAMS IV GIVEN PER PROTOCOL. PATIENT TOLERATED WELL. DISCHARGE INSTRUCTIONS GIVEN TO PATIENT. PT VERBALIZED UNDERSTANDING. PT STABLE, AAO X3. NO C/O PAIN.
[2018-11-23 12:03] LABS: APPEARANCE BODY FLUID CLEAR (CLEAR); BODY FLUID RBC 518 /cu. mm.; BODY FLUID WBC 102 /cu. mm.; COLOR,BODY FLUID YELLOW (LT YELLOW); SPECIMENTYPE,BODY FLUID ASCITES; TOTAL VOLUME,BODY FLUID 6700 mL
[2018-11-23 12:19] LABS: BF LYMPHOCYTE 54 %; BF MESOTHELIAL 20 %; BF MONOCYTE 23 %
== END | disposition home or self-care (01) ==
LOC: RAH 08:22
PROVIDERS: ATTEND Internal Medicine Gastroenterology
DX: K70.31 Alcoholic cirrhosis of liver with ascites (principal); K29.70 Gastritis, unspecified, without bleeding; I85.00 Esophageal varices without bleeding; D64.9 Anemia, unspecified; K64.1 Second degree hemorrhoids; K57.30 Diverticulosis of large intestine without perforation or abscess without bleeding; K40.90 Unilateral inguinal hernia, without obstruction or gangrene, not specified as recurrent; Z86.010 Personal history of colon polyps; Z98.890 Other specified postprocedural states; Z79.899 Other long term (current) drug therapy
CPT/HCPCS: 49083; 87071; 87205; 88108; 88305; 89051; 96365; A4215; P9046

== ENCOUNTER → 2018-11-30 | Outpatient (CLI) | payer MEDICARE ==
[~2018-11-30] MED LIST changes: +ALBUMIN (HUMAN) 25% 100 ML IV PRN; -ALBUMIN (HUMAN) 25% 100 ML IV SCH
--- NOTE | 2018-11-30 10:00 | NUR ---
U/S GD PARACENTESIS PROCEDURE PERFORMED BY DR Alex SESAY. PUNCTURE SITE RLQ AND PATIENT TOLERATED PROCEDURE WELL. TOTAL REMOVED 5.5 LITERS OF CLOUDY YELLOW FLUID. ALBUMIN 25% 25 GRAMS IV GIVEN DURING PROCEDURE. SPECIMEN SENT TO LAB. END OF PROCEDURE AT 0930. CATHETER REMOVED AND DRESSING APPLIED. NO BLEEDING NOTED. DISCHARGE INSTRUCTIONS GIVEN TO PATIENT AND VERBALIZED UNDERSTANDING. DISCHARGED VIA AMBULATION AT 1000. AAO X3 WITH NO C/O PAIN.
[2018-11-30 12:54] LABS: APPEARANCE BODY FLUID CLEAR (CLEAR); BODY FLUID WBC 137 /cu. mm.; COLOR,BODY FLUID YELLOW (LT YELLOW); SPECIMENTYPE,BODY FLUID ASCITES; TOTAL VOLUME,BODY FLUID 4000 mL
[2018-11-30 12:55] LABS: BODY FLUID RBC 443 /cu. mm.
[2018-11-30 13:17] LABS: BF LYMPHOCYTE 67 %; BF MESOTHELIAL 21 %; BF MONOCYTE 12 %
== END ==
LOC: RAH 08:02
PROVIDERS: ATTEND Internal Medicine Gastroenterology
DX: R18.8 Other ascites (principal)
CPT/HCPCS: 49083; 87071; 87205; 88108; 88305; 89051; 96365; A4215

== ENCOUNTER → 2018-12-07 | Outpatient (CLI) | payer MEDICARE ==
[~2018-12-07] MED LIST changes: -ALBUMIN (HUMAN) 25% 100 ML IV PRN; +ALBUMIN (HUMAN) 25% 100 ML IV SCH
--- NOTE | 2018-12-07 09:25 | NUR ---
U/S GD PARACENTESIS PROCEDURE PERFORMED BY DR GAMBLE. PUNCTURE SITE RIGHT LOWER QUADRANT AND PATIENT TOLERATED PROCEDURE WELL. TOTAL REMOVED 3.9 LITERS OF CLOUDY YELLOW FLUID. ALBUMIN 25% 25 GRAMS IV GIVEN DURING PROCEDURE. SPECIMEN SENT TO LAB. END OF PROCEDURE AT 1005. CATHETER REMOVED AND DRESSING APPLIED. NO BLEEDING NOTED. DISCHARGE INSTRUCTIONS GIVEN TO PATIENT AND VERBALIZED UNDERSTANDING. DISCHARGED VIA AMBULATION AT 1025. AAO X3 WITH NO C/O PAIN.
[2018-12-07 13:00] LABS: APPEARANCE BODY FLUID CLEAR (CLEAR); BODY FLUID RBC 352 /cu. mm.; BODY FLUID WBC 173 /cu. mm.; COLOR,BODY FLUID YELLOW (LT YELLOW); SPECIMENTYPE,BODY FLUID ASCITES; TOTAL VOLUME,BODY FLUID 3900 mL
[2018-12-07 13:20] LABS: BF LYMPHOCYTE 61 %; BF MESOTHELIAL 17 %; BF MONOCYTE 22 %
== END ==
LOC: RAH 08:07
PROVIDERS: ATTEND Internal Medicine Gastroenterology
DX: R18.8 Other ascites (principal)
CPT/HCPCS: 49083; 87071; 87205; 88108; 88305; 89051; 96365; A4215; P9046

== ENCOUNTER → 2018-12-21 | Outpatient (CLI) | payer MEDICARE ==
[~2018-12-21] MED LIST changes: +ALBUMIN (HUMAN) 25% 100 ML IV ONE; -ALBUMIN (HUMAN) 25% 100 ML IV SCH
--- NOTE | 2018-12-21 08:55 | NUR ---
U/S GD PARACENTESIS PROCEDURE PERFORMED BY DR GAMBLE. PUNCTURE SITE LEFT LOWER QUADRANT AND PATIENT TOLERATED PROCEDURE WELL. TOTAL REMOVED 7.3 LITERS OF CLOUDY YELLOW FLUID. ALBUMIN 25% 50 GRAMS IV GIVEN DURING PROCEDURE. SPECIMEN SENT TO LAB. END OF PROCEDURE AT 0935. CATHETER REMOVED AND DRESSING APPLIED. NO BLEEDING NOTED. DISCHARGE INSTRUCTIONS GIVEN TO PATIENT AND VERBALIZED UNDERSTANDING. DISCHARGED VIA AMBULATION AT 1005. AAO X3 WITH NO C/O PAIN.
[2018-12-21 11:41] LABS: APPEARANCE BODY FLUID CLEAR (CLEAR); BODY FLUID RBC 421 /cu. mm.; BODY FLUID WBC 125 /cu. mm.; COLOR,BODY FLUID YELLOW (LT YELLOW); SPECIMENTYPE,BODY FLUID ASCITES; TOTAL VOLUME,BODY FLUID 7300 mL
[2018-12-21 11:43] LABS: BF EOSINOPHIL 1 %; BF LYMPHOCYTE 50 %; BF MESOTHELIAL 24 %; BF MONOCYTE 18 %
== END ==
LOC: RAH 08:05
PROVIDERS: ATTEND Internal Medicine Gastroenterology
DX: K70.31 Alcoholic cirrhosis of liver with ascites (principal); Z79.899 Other long term (current) drug therapy; Z72.89 Other problems related to lifestyle; Z80.0 Family history of malignant neoplasm of digestive organs
CPT/HCPCS: 49083; 87071; 87205; 88108; 88305; 89051; 96365; A4215; P9046 ×2

== ENCOUNTER → 2018-12-27 | Outpatient (CLI) | payer MEDICARE ==
[~2018-12-27] MED LIST changes: -ALBUMIN (HUMAN) 25% 100 ML IV ONE
[2018-12-27 08:20] LABS: EOSINOPHILS % (AUTO) 1.6 % (0.0-8.0); LYMPHOCYTES % (AUTO) 11.5 % (21.0-51.0); MEAN CORPUSCULAR HEMOGLOBIN 27.4 pg (27.0-33.0); MEAN CORPUSCULAR HGB CONC 32.1 g/dL (32.0-36.0); MEAN CORPUSCULAR VOLUME 85.5 fL (79-99); MONOCYTES % (AUTO) 12.2 % (3.0-13.0); NEUTROPHILS % (AUTO) 73.7 % (40.0-77.0); PLATELET COUNT (AUTO) 98 K/uL (130-400); RED BLOOD CELL COUNT(AUTO) 2.92 MIL/uL (4.00-5.50); WHITE BLOOD COUNT (AUTO) 4.1 K/uL (4.8-10.8)
[2018-12-27 08:31] LABS: INR 1.28 (0.85-1.15); PROTHROMBIN TIME 13.4 SEC (9.6-11.6)
[2018-12-27 08:33] LABS: ALBUMIN 2.7 g/dL (3.5-5.0); BILIRUBIN,TOTAL 1.3 mg/dL (0.2-1.0); CREATININE 0.9 mg/dL (0.5-1.5); POTASSIUM 4.1 mmol/L (3.5-5.1); TOTAL PROTEIN, SERUM 5.5 g/dL (6.0-8.3)
[2018-12-27 08:43] LABS: PLATELET MORPHOLOGY COMMENT DECREASED
--- NOTE | 2018-12-27 09:45 | NUR ---
U/S GD PARACENTESIS PROCEDURE PERFORMED BY DR Jeanne ARMAN. PUNCTURE SITE RLQ. PATIENT C/O PAIN AT PUNCTURE SITE DURING PARACENTESIS. TOTAL REMOVED 3.8 LITERS OF BLOOD TINGED FLUID. SPECIMEN COLLECTED AND SENT TO LAB. END OF PROCEDURE AT 0900. HEMATOMA NOTD TO RLQ PUNCTURE SITE. CATHETER REMOVED AND PRESSURE APPLIED. AREA RESCANNED AND NO BLEEDING NOTED. DRESSING APLPIED WITH ICE PACK ON TOP. PATIENT TOLERATED PROCEDURE FAIR. DISCHARGED VIA AMBULATION AT 0945. VITAL SIGNS STABLE WITH PAIN SUBSIDING.
[2018-12-27 14:11] LABS: APPEARANCE BODY FLUID TURBID (CLEAR); BODY FLUID WBC 250 /cu. mm.; COLOR,BODY FLUID RED (LT YELLOW); SPECIMENTYPE,BODY FLUID ASCITES; TOTAL VOLUME,BODY FLUID 3800 mL
[2018-12-27 14:12] LABS: BODY FLUID RBC 238750 /cu. mm.
[2018-12-27 14:25] LABS: BF LYMPHOCYTE 48 %; BF MESOTHELIAL 43 %; BF MONOCYTE 4 %
== END ==
LOC: RAH 08:00
PROVIDERS: ATTEND Internal Medicine Gastroenterology
DX: K70.31 Alcoholic cirrhosis of liver with ascites (principal); M79.81 Nontraumatic hematoma of soft tissue; Z79.899 Other long term (current) drug therapy; Z72.89 Other problems related to lifestyle
CPT/HCPCS: 36415; 49083; 80053; 85025; 85610; 87071; 87205; 88108; 88305; 89051; A4215

== ENCOUNTER → 2019-01-02 | Outpatient (CLI) | payer MEDICARE ==
[~2019-01-02] MED LIST changes: +ALBUMIN (HUMAN) 25% 200 ML IV SCH
--- NOTE | 2019-01-02 09:25 | NUR ---
U/S GD PARACENTESIS PROCEDURE PERFORMED BY DR Kaushal YEPEZ. PUNCTURE SITE RLQ AND PATIENT TOLERATED PROCEDURE WELL. TOTAL REMOVED 7 LITERS OF GROSS BLOOD TINGED FLUID. ALBUMIN 25% 50 GRAMS IV GIVEN DURING PROCEDURE. SPECIMEN SENT TO LAB. END OF PROCEDURE AT 0900. CATHETER REMOVED AND DRESSING APPLIED. NO BLEEDING NOTED. DISCHARGE INSTRUCTIONS GIVEN TO PATIENT AND VERBALIZED UNDERSTANDING. DISCHARGED VIA AMBULATION AT 0930. AAO X3 WITH NO C/O PAIN.
[2019-01-02 14:58] LABS: APPEARANCE BODY FLUID CLOUDY (CLEAR); COLOR,BODY FLUID RED (LT YELLOW); SPECIMENTYPE,BODY FLUID ASCITES
[2019-01-02 14:59] LABS: BODY FLUID RBC 61750 /cu. mm.; BODY FLUID WBC 55 /cu. mm.; TOTAL VOLUME,BODY FLUID 7000 mL
[2019-01-02 15:04] LABS: BF LYMPHOCYTE 70 %; BF MESOTHELIAL 11 %; BF MONOCYTE 10 %
== END ==
LOC: RAH 07:55
PROVIDERS: ATTEND Internal Medicine Gastroenterology
DX: R18.8 Other ascites (principal)
CPT/HCPCS: 49083; 87071; 87205; 88108; 88305; 89051; 96365; P9046

== ENCOUNTER → 2019-01-09 | Outpatient (CLI) | payer MEDICARE ==
[~2019-01-09] MED LIST changes: +ALBUMIN (HUMAN) 25% 200 ML IV ONE
--- NOTE | 2019-01-09 12:56 | NUR ---
U/S GD PARACENTESIS PROCEDURE PERFORMED BY DR CAMPOS. PUNCTURE SITE RIGHT LOWER QUADRANT AND PATIENT TOLERATED PROCEDURE WELL. TOTAL REMOVED 6.1 LITERS OF CLOUDY CELIO ASCITES FLUID. ALBUMIN 25% 50 GRAMS IV GIVEN DURING PROCEDURE. SPECIMEN SENT TO LAB. END OF PROCEDURE AT 1005. CATHETER REMOVED AND DRESSING APPLIED. NO BLEEDING NOTED. DISCHARGE INSTRUCTIONS GIVEN TO PATIENT AND VERBALIZED UNDERSTANDING. DISCHARGED VIA AMBULATION AT 1035. AAO X3 WITH NO C/O PAIN.
[2019-01-09 14:02] LABS: BF LYMPHOCYTE 57 %; BF MESOTHELIAL 3 %; BF MONOCYTE 13 %
[2019-01-09 14:03] LABS: APPEARANCE BODY FLUID CLOUDY (CLEAR); COLOR,BODY FLUID AMBER (LT YELLOW); SPECIMENTYPE,BODY FLUID ASCITES; TOTAL VOLUME,BODY FLUID 6100 mL
[2019-01-09 14:04] LABS: BODY FLUID RBC 655 /cu. mm.; BODY FLUID WBC 95 /cu. mm.
== END ==
LOC: RAH 08:09
PROVIDERS: ATTEND Internal Medicine Gastroenterology
DX: K70.31 Alcoholic cirrhosis of liver with ascites (principal); Z79.899 Other long term (current) drug therapy; Z72.89 Other problems related to lifestyle
CPT/HCPCS: 49083; 87071; 87205; 88108; 88305; 89051; 96365; A4215; P9046

== ENCOUNTER → 2019-01-10 | Outpatient (CLI) | payer MEDICARE ==
[~2019-01-10] MED LIST changes: -ALBUMIN (HUMAN) 25% 200 ML IV ONE; -ALBUMIN (HUMAN) 25% 200 ML IV SCH; +IOHEXOL 350 MG/ML 100ML INFUS..BTL IV ONE
== END | disposition home or self-care (01) ==
LOC: RAH 07:31
PROVIDERS: ATTEND Internal Medicine Gastroenterology
DX: K74.60 Unspecified cirrhosis of liver (principal); M47.815 Spondylosis without myelopathy or radiculopathy, thoracolumbar region; R18.8 Other ascites; I70.0 Atherosclerosis of aorta
CPT/HCPCS: 74170; Q9967

== ENCOUNTER → 2019-01-19 | Outpatient (CLI) | payer MEDICARE ==
[~2019-01-19] MED LIST changes: +ALBUMIN (HUMAN) 25% 200 ML IV SCH; -IOHEXOL 350 MG/ML 100ML INFUS..BTL IV ONE
--- NOTE | 2019-01-19 08:45 | NUR ---
U/S GD PARACENTESIS PROCEDURE PERFORMED BY DR SESAY. PUNCTURE SITE RIGHT LOWER QUADRANT AND PATIENT TOLERATED PROCEDURE WELL. TOTAL REMOVED 7.3 LITERS OF CLOUDY MONROY COLORED ASCITES FLUID. ALBUMIN 25% 50 GRAMS IV GIVEN DURING PROCEDURE. SPECIMEN SENT TO LAB. END OF PROCEDURE AT 0935. CATHETER REMOVED AND DRESSING APPLIED. NO BLEEDING NOTED. DISCHARGE INSTRUCTIONS GIVEN TO PATIENT AND VERBALIZED UNDERSTANDING. DISCHARGED VIA AMBULATION AT 1000. AAO X3 WITH NO C/O PAIN.
[2019-01-19 10:12] LABS: BASOPHILS % (AUTO) 1.3 % (0.0-5.0); LYMPHOCYTES % (AUTO) 10.4 % (21.0-51.0); MEAN CORPUSCULAR HEMOGLOBIN 27.2 pg (27.0-33.0); MEAN CORPUSCULAR HGB CONC 32.4 g/dL (32.0-36.0); MEAN CORPUSCULAR VOLUME 83.8 fL (79-99); MONOCYTES % (AUTO) 12.2 % (3.0-13.0); NEUTROPHILS % (AUTO) 75.1 % (40.0-77.0); PLATELET COUNT (AUTO) 81 K/uL (130-400); RED BLOOD CELL COUNT(AUTO) 2.29 MIL/uL (4.00-5.50); RED CELL DISTRIBUTION WIDTH 19.2 % (11.0-15.5); WHITE BLOOD COUNT (AUTO) 3.2 K/uL (4.8-10.8)
[2019-01-19 10:22] LABS: HEMATOCRIT 19.2 % (36-48)
[2019-01-19 10:24] LABS: INR 1.41 (0.85-1.15); PROTHROMBIN TIME 14.7 SEC (9.6-11.6)
[2019-01-19 10:29] LABS: ALBUMIN 3.6 g/dL (3.5-5.0); BILIRUBIN,TOTAL 0.8 mg/dL (0.2-1.0); POTASSIUM 3.8 mmol/L (3.5-5.1); TOTAL PROTEIN, SERUM 6.2 g/dL (6.0-8.3)
[2019-01-19 11:11] LABS: PLATELET MORPHOLOGY COMMENT DECREASED
[2019-01-19 12:35] LABS: SPECIMENTYPE,BODY FLUID ASCITES
[2019-01-19 12:36] LABS: APPEARANCE BODY FLUID CLEAR (CLEAR); BODY FLUID RBC 649 /cu. mm.; BODY FLUID WBC 88 /cu. mm.; COLOR,BODY FLUID YELLOW (LT YELLOW); TOTAL VOLUME,BODY FLUID 7300 mL
[2019-01-19 12:40] LABS: BF LYMPHOCYTE 56 %; BF MESOTHELIAL 21 %; BF MONOCYTE 19 %
== END ==
LOC: RAH 08:17
PROVIDERS: ATTEND Internal Medicine Gastroenterology
DX: R18.8 Other ascites (principal); K74.60 Unspecified cirrhosis of liver
CPT/HCPCS: 36415; 49083; 80053; 82105; 85025; 85610; 87071; 87205; 88108; 88305; 89051; 96365; A4215; P9046